=== PATIENT | female | born 1950 | race Caucasian/White ===

== ENCOUNTER 2018-02-20 20:54 | Emergency (ER) | payer MEDICARE, SELFPAY ==
[2018-02-20 20:55] VITALS: BP 175/70; PULSE 89; RESP 18; TEMP 36.6; O2SAT 94; BMI 37.4
--- NOTE | 2018-02-20 20:58 | ED.RN ---
CALLED FOR EKG PER RN REQUEST, PULLED OLD EKGS FOR
--- NOTE | 2018-02-20 21:05 | EKG12_ITS ---
Test Reason : WEAKNESS Blood Pressure : / mmHG Vent. Rate : 087 BPM Atrial Rate : 087 BPM P-R Int : 164 ms QRS Dur : 090 ms QT Int : 396 ms P-R-T Axes : 061 051 056 degrees QTc Int : 476 ms Normal sinus rhythm Normal ECG Confirmed by RANDI MONTIEL, IMELDA ([id number]), supervising editor news reel KEVIN ALONSO ([id number]) on 02/22/2018 11:21:23 AM Referred By: FAVIO Confirmed By:IMELDA BRYAN MD
--- NOTE | 2018-02-20 21:05 | CT_ITS ---
STUDY: CT BRAIN WITHOUT CONTRAST REASON FOR EXAM: Female, 67 years old. Dizziness and nausea and left-sided weakness RADIATION DOSAGE (If Supplied By Facility): CTDIvol = ( 44.99 ) mGy, DLP = ( 812.98 ) mGycm TECHNIQUE: Transaxial CT imaging of the brain was performed without administration of intravenous contrast material. Individualized dose optimization techniques were used for this CT. COMPARISON: Prior study of 10/07/2014 FINDINGS: There is a 1.1 cm subcutaneous nodule of the posterior scalp near the skull vertex. Normal calvarium. Normal size ventricles and extra-axial spaces for the patient's age. Normal white matter tracts of the cerebral hemispheres. Normal basal ganglia and thalami. Normal brainstem. Normal cerebellum. There is no intracranial hemorrhage. There are no findings of an acute ischemic infarction. There is a small polypoid filling defect of the left maxillary sinus. CT/Brain/Head without Contrast IMPRESSION: Small polypoid filling defect of the left maxillary sinus consistent with mucoid retention cyst. There is a 1.1 cm subcutaneous nodule of the posterior scalp near the skull vertex which may represent a sebaceous cyst. There is no evidence of intracranial hemorrhage or infarct. Electronically Signed: Cuauhtemoc Christine MD at 21:48 EST , Service support ,
[2018-02-20 21:16] LABS: Absolute Lymphocyte Count 3.28 X10^3/ul (0.83-4.51); Absolute Neutrophil Count 5.4 X10^3/uL (2.0-7.7); Basophil# 0.03 X10^3/uL; Basophil% 0.3 % (0-1); Eosinophil# 0.17 X10^3/uL; Eosinophils% 1.8 % (0-5); Hematocrit 40.7 % (37-47); Hemoglobin 13.6 g/dl (12.0-15.0); Lymphocyte # 3.28 X10^3/ul (4.0); Lymphocyte % 34.5 % (19-41); Mean Corp Hgb Conc 33.4 g/gl (32-36); Mean Corpuscular Hgb 30.4 pg (27.0-32.0); Mean Corpuscular Volume 90.8 fL (81-99); Mean Platelet Vol. 10.5 fl (6.2-12.0); Monocyte# 0.68 X10^3/uL; Monocyte% 7.1 % (0-10); Neutrophil # 5.35 X10^3/uL (2.7-7.7); Neutrophil % 56.2 % (47-70); Platelet Count 202 K/mm3 (150-450); RBC Distribution Width CV 12.5 % (11.6-14.6); RBC Distribution Width SD 41.4 fl (35.1-43.9); Red Blood Count 4.48 M/mm3 (4.2-5.4); White Blood Count 9.5 K/mm3 (4.4-11.0)
[2018-02-20 21:21] LABS: POSITIVE COUNT NO; POSITIVE DIFFERENTIAL NO; POSITIVE MORPHOLOGY NO
[2018-02-20] MEDS: LORazepam 2 MG/ML Syringe 0.5 MG IV (21:22)
[2018-02-20] MEDS: 0.9% Normal Saline 1,000 ML 150 ML IV (21:23)
--- NOTE | 2018-02-20 21:24 | ED.VISSUMM ---
- ER Visit Summary Date of Service: 02/20/18 Chief Complaint: Weak and dizzy History of Present Illness: The patient is a 67 F who had onset of vertigo with nausea and vomiting after blowing her nose about 3 hours prior to arrival. Patient does have chronic left sided weakness from prior stroke but she denies any weakness that is different than her baseline. She states she has had vertigo in the past but never this severe. Past history significant for prior stroke with chronic left sided weakness, diabetes, IA. Physical Examination: Blood pressure is 175/70, otherwise vitals normal. Patient is lying in bed no acute distress. Head and neck examination is unremarkable. Heart is regular rate and rhythm. Lung sounds are clear. Abdomen is soft nontender. Neuro exam reveals an NIH score of 3, but patient states this is at her baseline. Test Results: EKG is sinus 87 with no sign of acute ischemia. CBC and chemistry studies significant only for glucose of 251. Troponin is negative. CT head shows small filling defect in the left maxillary sinus consistent with a mucoid retention cyst. There is a 1.1 cm subcutaneous nodule the posterior scalp which may represent sebaceous cyst. There is no evidence of hemorrhage or infarct. Emergency Department Course and Treatment: Patient did receive Zofran IM with EMS. She is given Ativan IV along with IV fluids here. On repeat evaluation patient feels significantly improved. She will be given prescription for Zofran at home if needed. She will be discharged home with her . Treatment Plan: [] Disposition: Discharge Impression: Vertigo, improved This note was generated with [employer] dictation software. It may contain incorrect words, spelling, and punctuation that were not noted in review of the chart prior to signing ED Disposition - Plan for ED Patient: Chief Complaint: Weakness Referrals: Young Eric III, MD [Primary Care Provider] -
[2018-02-20 21:32] LABS: Anion Gap 6 (5-15); BUN 12 mg/dL (7-18); BUN/Creat Ratio 12.7 RATIO (10-20); Calcium,Total 8.4 mg/dL (8.5-10.1); Chloride 104 mmol/L (98-107); Creatinine, Serum 0.94 mg/dL (0.55-1.02); EST Glomerular Filtration Rate 63 mL/min (>60); Est Glom Filt Rate - Afr Amer 77 mL/min (>60); Estimated Creatinine Clearance 66.69 ml/min; Glucose 251 mg/dL (74-106); Sodium Level 139 mmol/L (136-145)
[2018-02-20 22:16] VITALS: BP 143/70; PULSE 83; RESP 12; O2SAT 94
--- NOTE | 2018-02-20 22:24 | ED.DEP ---
ED Disposition - Plan for ED Patient: Disposition: Home or Assisted Living Chief Complaint: Weakness Instructions: ED Vertigo Unspecified Prescriptions: Diazepam [Valium] 2 mg PO TID PRN PRN #10 tablet PRN Reason: Vertigo Referrals: Young Eric III, MD [Primary Care Provider] - 3-5 Days if not improving
[2018-02-20 22:43] VITALS: BP 143/78; PULSE 89; RESP 18; O2SAT 97
== END 2018-02-20 22:45 | disposition home or self-care (01) ==
PROVIDERS: Emergency Provider Emergency Medicine; Family Provider Family Medicine; PCP Family Medicine
DX: R42 Dizziness and giddiness (principal); I69.354 Hemiplegia and hemiparesis following cerebral infarction affecting left non-dominant side; I25.2 Old myocardial infarction; E11.9 Type 2 diabetes mellitus without complications; E66.9 Obesity, unspecified; Z68.37 Body mass index [BMI] 37.0-37.9, adult; Z79.4 Long term (current) use of insulin; Z79.82 Long term (current) use of aspirin; Z79.899 Other long term (current) drug therapy; Z72.0 Tobacco use
CPT/HCPCS: 70450; 80048; 84484; 85025; 93005; 96361; 96374; 99285; J7030; A4216; J2405

== ENCOUNTER 2018-05-15 20:52 | Observation (INO) | payer MEDICARE, SELFPAY ==
[2018-05-15 20:52] VITALS: BP 141/84; PULSE 90; RESP 19; TEMP 36.6; O2SAT 96; BMI 35.9
--- NOTE | 2018-05-15 20:55 | EKG12_ITS ---
Test Reason : CP Blood Pressure : / mmHG Vent. Rate : 088 BPM Atrial Rate : 088 BPM P-R Int : 148 ms QRS Dur : 084 ms QT Int : 392 ms P-R-T Axes : 045 051 055 degrees QTc Int : 474 ms Normal sinus rhythm Possible Inferior infarct , age undetermined Abnormal ECG Confirmed by RANDI MONTIEL, IMELDA ([id number]), material expeditor KEVIN ALONSO ([id number]) on 05/19/2018 8:15:21 AM Referred By: Solo Morfin Confirmed By:IMELDA BRYAN MD
[2018-05-15 20:56] VITALS: O2SAT 96
--- NOTE | 2018-05-15 21:17 | RAD_ITS ---
STUDY: X-RAY CHEST REASON FOR EXAM: Female, 67 years old. Chest pain. TECHNIQUE: Single AP portable view of the chest. COMPARISON: October 01, 2015. FINDINGS: The lungs are mildly hyperexpanded. There is no new mass or infiltrate. There is no demonstrated pleural abnormality. Normal size heart. Normal mediastinum and ana laura. Normal visualized pulmonary arteries. Normal visualized aortic arch and descending thoracic aorta. The thoracic spine is obscured by the mediastinum. There is degenerative osteoarthritis of the bilateral shoulders. There is no demonstrated abnormality of the visualized soft tissue structures of the upper abdomen. RAD/Chest 1 View (Portable) IMPRESSION: No acute cardiopulmonary disease or interval change. Electronically Signed: Arnoldo Mistry DO at 21:37 EST Tel [phone], Service support ,
[2018-05-15] MEDS: Ondansetron 4 MG/2 ML Vial IV (21:18)
[2018-05-15] MEDS: Morphine 4 MG/ML Syringe IV ×2 (21:18→23:39)
[2018-05-15] MEDS: 0.9% Normal Saline 1,000 ML 150 ML IV (21:18)
[2018-05-15 21:24] LABS: Absolute Neutrophil Count 5.2 X10^3/uL (2.0-7.7); Basophil# 0.05 X10^3/uL; Basophil% 0.5 % (0-1); Eosinophil# 0.17 X10^3/uL; Eosinophils% 1.8 % (0-5); Hematocrit 45.8 % (37-47); Hemoglobin 14.9 g/dl (12.0-15.0); Lymphocyte % 35.8 % (19-41); Mean Corp Hgb Conc 32.5 g/gl (32-36); Mean Corpuscular Hgb 29.2 pg (27.0-32.0); Mean Corpuscular Volume 89.8 fL (81-99); Mean Platelet Vol. 10.7 fl (6.2-12.0); Monocyte# 0.66 X10^3/uL; Monocyte% 6.9 % (0-10); Neutrophil % 54.8 % (47-70); POSITIVE COUNT NO; POSITIVE DIFFERENTIAL NO; POSITIVE MORPHOLOGY NO; Platelet Count 201 K/mm3 (150-450); RBC Distribution Width CV 12.8 % (11.6-14.6); RBC Distribution Width SD 42.2 fl (35.1-43.9); White Blood Count 9.5 K/mm3 (4.4-11.0)
[2018-05-15 21:40] LABS: Anion Gap 8 (5-15); BUN 10 mg/dL (7-18); BUN/Creat Ratio 10.1 RATIO (10-20); Calcium,Total 9.1 mg/dL (8.5-10.1); Chloride 102 mmol/L (98-107); EST Glomerular Filtration Rate 59 mL/min (>60); Est Glom Filt Rate - Afr Amer 72 mL/min (>60); Estimated Creatinine Clearance 62.69 ml/min; Glucose 378 mg/dL (74-106); Potassium 3.7 mmol/L (3.5-5.1); Sodium Level 136 mmol/L (136-145)
[2018-05-15 22:38] VITALS: BP 127/53; PULSE 74; RESP 14; O2SAT 95
--- NOTE | 2018-05-15 23:12 | PCM.HP.STD ---
Problem List (1) Chest pain Status: Acute (2) Diabetes Status: Chronic History of Present Illness Date of Admission: 05/15/18 Chief Complaint: chest pain The patient is a 67 year old F with a significant history of diabetes mellitus; CVA; and chronic left sided body pain status post CVA; CAD with 75% blockage in a coronary vessel diagnosed in [place] in 2005 who presented because of excruciating substernal chest pain. He described the pain as a pressure; and like a flower bursting from her chest. Associated with her symptoms is nausea without vomiting. She denies any diaphoresis. Her chest pain started while she was walking in her home. She denies any ameliorating factor. Her chest pain is aggravated with walking. Her chest pain started about 3 and half hours prior to presentation. In the past 1 month she has had difficulty walking from her bedroom to her kitchen. Past Medical History Past Medical History (Chronic Problems): Chronic Problems (Last Updated 05/16/18 @ 02:39 by Solo Morfin MD) Diabetes (Chronic) Medical History: Medical History (Last Updated 05/16/18 @ 02:39 by Solo Morfin MD) Diabetes E11.9 Allergies No Known Allergies Allergy (Verified 05/15/18 20:56) Home Medications: Ambulatory Orders Medication Instructions Recorded Gabapentin [Neurontin] 1,200 mg PO TID 06/06/14 Aspirin E.C. [Ecotrin] 81 mg PO DAILY 02/04/15 Atorvastatin Calcium [Lipitor] 40 mg PO QHS #30 tablet 10/31/16 Oxycodone HCl/Acetaminophen 1 - 2 tablet PO Q6H PRN PRN #20 10/31/16 [Percocet 5/325] tablet Baclofen [Lioresal] 5 mg PO TID PRN 02/20/18 Insulin Glargine [Lantus SoloStar 36 units SQ DAILY@1900 02/20/18 Pen] Amitriptyline HCl 25 mg PO QHS 05/16/18 Metoprolol Tartrate [Lopressor 50 mg PO BID 05/16/18 (beta lennie)] Surgical History: cataract Lives: Spouse/ Significant Other Smoking Status: Current every day smoker Tobacco Use: Cigarettes - *Family History Maternal History Items: - - Patient was adopted and does not know her biological parents. Paternal History Items: - - Patient was adopted and does not know her biological parents. Review of Systems Constitutional: Reports: Weakness. Denies: Chills, Fever, Weight Change HEENT: Denies: Head Aches, Sinus Congestion, Sinus Drainage Cardiovascular: Reports: Chest Pain. Denies: Palpitations Respiratory: Reports: Shortness of Breath. Denies: Cough Gastrointestinal: Reports: Nausea. Denies: Abdominal Pain, Vomiting Genitourinary: Denies: Dysuria Musculoskeletal: Denies: Joint Pain, Joint Tenderness Skin: Denies: Rash, Wounds Neurological: Denies: Numbness, Tingling, Focal weakness Psychiatric: Denies: Anxiety, Depression, Homicidal Ideations, Suicidal Ideations Hematologic/ Lymphatic: Denies: Easy Bruising, Easy Bleeding VTE Information - Inpt Only VTE Present on Admission: No VTE Mechan Device Prophylaxis: None VTE Pharm Prophylaxis ordered?: Yes Patient Problems: Active and Suspected Problems (Last Updated 05/16/18 @ 02:39 by Solo Morfin MD) Chest pain (Acute) - Physical Exam General: Alert, Oriented x3, Cooperative HEENT: Atraumatic, PERRLA, EOMI, Normocephalic Neck: Supple, No JVD, Negative Carotid Bruits Lungs: Clear to auscultation, Normal air movement Cardiovascular: Regular rate, No murmurs Abdomen: Bowel Sounds Present, Soft, Non Tender Extremities: No edema, Capillary Refill Less than 3 Seconds Skin: No rashes, No breakdown Musculoskeletal: No Tenderness to Palpation of Joints or Extremities Neurological: - - Left extremity strength 3/5 upper and lower. Right extremity strength 5 out of 5; upper and lower. Psych/Mental Status: Normal Affect, Appropriate Vital Signs Temp Pulse Resp BP Pulse Ox 98 F 74 14 127/53 H 95 05/15/18 20:52 05/15/18 22:38 05/15/18 22:38 05/15/18 22:38 05/15/18 22:38 Oxygen Delivery Method Room Air Weight: 116.9 kg Body Mass Index (BMI) 35.9 Finger Stick Blood Glucose 464 Laboratory Tests Past 24 Hrs 05/15/18 05/15/18 21:10 21:10 WBC 9.5 RBC 5.10 Hgb 14.9 Hct 45.8 MCV 89.8 MCH 29.2 MCHC 32.5 RDW 12.8 RDW Differential 42.2 Plt Count 201 MPV 10.7 Immature Gran % (Auto) 0.200 Neut % (Auto) 54.8 Lymph % (Auto) 35.8 Blanco % (Auto) 6.9 Eos % (Auto) 1.8 Baso % (Auto) 0.5 Absolute Neuts (auto) 5.2 Absolute Lymphs (auto) 3.40 Total Counted Not Reportable Sodium 136 Potassium 3.7 Chloride 102 Carbon Dioxide 26.0 Anion Gap 8 BUN 10 Creatinine 1.00 Estim Creat Clear Calc 62.69 Est GFR (MDRD) Af Amer 72 Est GFR (MDRD) Non-Af 59 L BUN/Creatinine Ratio 10.1 Glucose 378 H Calcium 9.1 Troponin I < 0.015 Assessment/Plan All Active Problems (Last Updated 05/16/18 @ 02:39 by Solo Morfin MD) Chest pain (Acute) The patient is a 67 year old F with a significant history of diabetes mellitus; CVA; and chronic left sided body pain status post CVA; CAD with 75% blockage in the coronary vessel diagnosed in [place] in 2005 who presented with excruciating substernal chest pain. Chest pain Admit to a monitored bed on PCU CXR independently reviewed confirms no acute cardiopulmonary process. EKG independently reviewed confirms q waves in inferior lobes ASA 81 mg p.o. daily SL NTG 0.4 mg prn as needed for chest pain We will check lipid panel. High intensity statin continued Serial cardiac enzymes Stat EKG as needed for chest pain Chemical Stress test in the AM if the cardiac enzymes are negative On metoprolol. She denies history of hypertension. Report that metoprolol was started because of CAD. Metoprolol continued Chronic pain Reported left-sided pain after stroke. On home gabapentin 1200 mg 3 times daily. Will cutdown her gabapentin dose to 300 mg 3 times daily at this time. Report that she has been taking her home Percocet more than required for which reason she has run out and is not due to get another Percocet until another week. Will order Percocet as needed while inpatient. Hypertension Though not officially diagnosed with hypertension, with patient on metoprolol and his systolic blood pressure more than 120 it is likely patient has underlying hypertension. Metoprolol continued Diabetes mellitus On presentation her blood glucose was not within goal. Continue Lantus Patient has been placed n.p.o. for stress test in a.m. Correction scale insulin ordered. DVT prophylaxis Subcutaneous heparin. Code Visit OBSV E&M: 87189 Initial observation care L3
--- NOTE | 2018-05-15 23:36 | ED.VISSUMM ---
- ER Visit Summary Date of Service: 05/15/18 Chief Complaint: Chest pain History of Present Illness: The patient is a [address] Young Eric III. She reports that she has chest pain began approximate 2 hours ago while she was walking around her house. Is a dull pressure with radiation up to her throat. Is 10 out of 10 at worst and 7-10 currently. Is worsened by exertion relieved by rest. States that it made her nauseated and short of breath. Patient has a history of diabetes, hypercholesterolemia, and tobacco use. She reports she had a heart catheterization in 2005 that showed 75% blockage and no intervention was undertaken. She has not had a stress test since then. Physical Examination: Vitals: Stable. Afebrile. General: Well-nourished and well-developed. Head: Normocephalic atraumatic. Neck: Supple, no lymphadenopathy. No JVD. Nontender. Cardiovascular: Regular rate and rhythm. No murmurs. Respiratory: No respiratory distress. Clear to auscultation bilaterally. Abdominal: Soft, nontender, nondistended, normal bowel sounds. No guarding, rebound, or peritoneal signs. Back: Nontender. Extremities: Nontender, no edema. Skin: Normal color, no rash. Neurologic: Alert and oriented ?3. Cranial nerves II through XII are intact. Normal strength and sensation. Psych: Normal affect. Test Results: EKG is sinus at [address] changes and artifact. Is unchanged from February of last year. Troponin is negative. Chem-7 is more for glucose of 378. CBC is normal. Chest x-ray is normal. Emergency Department Course and Treatment: Patient was treated with aspirin p.o. She was given morphine and Zofran IV. She is resting comfortably. Treatment Plan: Patient was discussed with Dr. Morfin. She will be admitted for further evaluation and treatment. Disposition: Admitted in improved condition. Impression: 1. Chest pain. 2. DINESH score of 4. 3. Hyperglycemia with history of non-insulin dependent diabetes mellitus. This note was generated with [employer] software. It may contain incorrect words, spelling, and punctuation that were not noted in review of the chart prior to signing ED Disposition - Plan for ED Patient: Referrals: Young Eric III, MD [Primary Care Provider] -
[2018-05-15 23:38] VITALS: BP 145/60; PULSE 78; RESP 15; O2SAT 96
[2018-05-16] VITALS (24 sets, daily range): BP systolic 90–165; BP diastolic 49–81; PULSE 73–94; RESP 16; TEMP 36.6–36.9; O2SAT 93–96; BMI 34.0; BMI 34.1
--- NOTE | 2018-05-16 02:20 | EKG12_ITS ---
Test Reason : Blood Pressure : / mmHG Vent. Rate : 087 BPM Atrial Rate : 087 BPM P-R Int : 138 ms QRS Dur : 082 ms QT Int : 376 ms P-R-T Axes : 031 040 074 degrees QTc Int : 452 ms Normal sinus rhythm Possible Inferior infarct , age undetermined T wave abnormality, consider anterior ischemia Abnormal ECG When compared with ECG of 16-MAY-2018 02:58, MANUAL COMPARISON REQUIRED, DATA IS UNCONFIRMED Confirmed by RANDI MONTIEL, IMELDA ([id number]), digital editor KEVIN ALONSO ([id number]) on 05/19/2018 9:23:41 AM Referred By: Solo Morfin Confirmed By:IMELDA BRYAN MD
[2018-05-16] MEDS: Insulin Lispro 100 UNIT/ML INSULN.PEN SQ ×5 (03:01→21:22)
[2018-05-16] MEDS: Gabapentin 300 MG Capsule PO ×3 (03:03→17:53)
[2018-05-16] MEDS: Amitriptyline 25 MG Tablet PO ×2 (03:33→21:22)
[2018-05-16] MEDS: Morphine 2 MG/ML Syringe IV ×3 (03:34→18:00)
[2018-05-16] MEDS: 0.9% NaCl Peripheral Flush Adult/Peds IV ×3 (03:34→18:03)
[2018-05-16 03:41] LABS: Bedside Glucose 273 mg/dL (70-110)
[2018-05-16 06:31] LABS: Hematocrit 46.4 % (37-47); Mean Corp Hgb Conc 32.3 g/gl (32-36); Mean Corpuscular Hgb 29.1 pg (27.0-32.0); Mean Corpuscular Volume 90.1 fL (81-99); Mean Platelet Vol. 10.8 fl (6.2-12.0); Platelet Count 210 K/mm3 (150-450); RBC Distribution Width SD 42.2 fl (35.1-43.9); Red Blood Count 5.15 M/mm3 (4.2-5.4); Scan Indicated on CBC? Y/N NO; White Blood Count 8.9 K/mm3 (4.4-11.0)
[2018-05-16 06:33] LABS: International Normalized Ratio 0.9; Prothrombin Time (Protime)PT. 12.5 SECONDS (11.7-14.9)
[2018-05-16 06:34] LABS: Partial Thromboplast Time 27.3 Seconds (24.1-36.2)
[2018-05-16] MEDS: Aspirin E.C. 81 MG Tablet PO (06:42)
[2018-05-16 06:50] LABS: Anion Gap 8 (5-15); BUN 11 mg/dL (7-18); BUN/Creat Ratio 12.7 RATIO (10-20); Chloride 105 mmol/L (98-107); Creatinine, Serum 0.86 mg/dL (0.55-1.02); EST Glomerular Filtration Rate 70 mL/min (>60); Est Glom Filt Rate - Afr Amer 85 mL/min (>60); Estimated Creatinine Clearance 75.26 ml/min; Glucose 191 mg/dL (74-106); Potassium 3.9 mmol/L (3.5-5.1); Sodium Level 140 mmol/L (136-145)
[2018-05-16 06:56] LABS: Bedside Glucose 208 mg/dL (70-110)
--- NOTE | 2018-05-16 08:01 | EKG12_ITS ---
Test Reason : CP Blood Pressure : / mmHG Vent. Rate : 082 BPM Atrial Rate : 082 BPM P-R Int : 148 ms QRS Dur : 090 ms QT Int : 396 ms P-R-T Axes : 046 041 058 degrees QTc Int : 462 ms Normal sinus rhythm Possible Inferior infarct , age undetermined Abnormal ECG When compared with ECG of 16-MAY-2018 08:15, MANUAL COMPARISON REQUIRED, DATA IS UNCONFIRMED Confirmed by RANDI MONTIEL, IMELDA ([id number]), medical transcription editor KEVIN ALONSO ([id number]) on 05/19/2018 9:22:15 AM Referred By: Solo Morfin Confirmed By:IMELDA BRYAN MD
[2018-05-16 08:22] LABS: Cholesterol 200 mg/dL (200); High Density Lipoprotein 39 mg/dL; Triglycerides 282 mg/dL; Very Low Density Lipoprotein 56 mg/dL (5-40)
[2018-05-16] MEDS: Metoprolol Tartrate 50 MG Tablet PO ×2 (10:54→21:22)
--- NOTE | 2018-05-16 11:47 | DCINST_ITS ---
- Discharge Diagnoses Current Active Problems: Current Active and Chronic Problems (Last Updated 05/16/18 @ 02:39 by Solo Morfin MD) Chest pain (Acute) Diabetes (Chronic) You will use the following diet at home:: Calorie/Carbohydrate Controlled (specify 1200, 1400, etc) - 1800 jami / day, Cardiac Your food should be the consistency of: Regular Your liquids should be the consistency of: Regular/Thin Discharge Activity: Return to Normal Activity, - - No smoking. Instructions: Tips for Quitting Smoking (Cardiovascular) Allergies/Adverse Reactions: Allergies No Known Allergies Allergy (Verified 05/15/18 20:56) Medications to take at Discharge Gabapentin [Neurontin] 1,200 mg PO TID 06/06/14 Aspirin E.C. [Ecotrin] 81 mg PO DAILY 02/04/15 Atorvastatin Calcium [Lipitor] 40 mg PO QHS #30 tablet 10/31/16 Oxycodone HCl/Acetaminophen [Percocet 5-325] 1 - 2 tablet PO Q6H PRN PRN #20 tablet 10/31/16 Baclofen [Lioresal] 5 mg PO TID PRN 02/20/18 Amitriptyline HCl 25 mg PO QHS 05/16/18 Aspirin E.C. [Ecotrin] 81 mg PO DAILY@0800 tablet 05/16/18 Insulin Glargine [Lantus SoloStar Pen] 38 units SC DAILY@1900 pen 05/16/18 Metoprolol Tartrate [Lopressor (beta lennie)] 50 mg PO BID 05/16/18 Primary Care Physician: Young Eric III, MD [Primary Care Provider] - Please follow up with your Primary Care Physician in: 1-2 weeks Test Results: Test results from this visit will be discussed in further detail at your follow- up appointment, if applicable. Proposed Discharge Date: 05/16/18
[2018-05-16 12:41] LABS: Bedside Glucose 187 mg/dL (70-110)
--- NOTE | 2018-05-16 12:57 | STRESSREP ---
Stress Test Report Pharmacologic myocardial perfusion stress test. 67-year-old lady with a history of chest pain. Stress protocol: Resting EKG demonstrates normal sinus rhythm with a rate of 93 bpm normal intervals are noted resting blood pressure 118/56. 0.4 mg of regadenoson was infused per usual protocol followed by rapid intravenous saline flush injection continuous EKG monitoring was performed. The patient maintained sinus rhythm with a maximum heart rate of 114 bpm attaining 73% maximum predicted heart rate the maximum workload was 1 metabolic equivalent. At rest there were no ST or T wave changes noted suggest abnormal flow reserve at peak infusion no ST or T wave changes were noted suggest abnormal flow reserve. Next Myocardial perfusion protocol. 14.1 mCi of technetium 99m sestamibi was injected at rest. 0.4 mg of regadenoson was infused per usual protocol. At peak infusion 44.2 mCi of technetium 99m sestamibi was injected stress images were obtained stress and rest images were reconstructed and compared in the short axis vertical long horizontal long axis. Gated images was obtained Perfusion SPECT analysis: Review of the stress images demonstrate normal uptake of tracer noted in all areas of myocardium. The rest images will demonstrate normal uptake tracer noted in all his myocardium. No reversibility is noted suggest ischemia no previous infarct is noted. Gated SPECT analysis: The gated ejection fraction is noted to be 72%. Conclusion: Normal pharmacologic myocardial perfusion stress test. Preserved ejection fraction.
--- NOTE | 2018-05-16 13:25 | CASEMGMT ---
According to the [facility] website, the following are in-network tertiary facilities: [facility], [facility], [facility], [facility], [facility], [facility], [employer], and . Pawan [facility]ILL[facility]
[2018-05-16 13:35] LABS: D-Dimer Quantitative (DVT/PE) 0.38 FEU/ug/m (0.27-0.49)
--- NOTE | 2018-05-16 14:17 | PCM.PROGNOTE ---
<Pro Heller - Last Filed: 05/16/18 14:17> Patient Problems: Active and Suspected Problems (Last Updated 05/16/18 @ 02:39 by Solo Morfin MD) Chest pain (Acute) Subjective: Pt is upset because she feels she is being treated as a drug seeker. She states that despite testing she continues to have 10/10 exploding chest pain radiating to the back and neck. Nitro and morphine only helped a little bit. The pain is ongoing. now present and able to help clarify hx. She had an [place] in 2005 or 2006 (she is not sure) in [place] ([facility]) and had 70% blockage in one vessel and >90% blockage in another. She does not know which vessels. She states she was given clot buster and has not had stents or open heart. She did not have follow up with cardiology. 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 The chest pain takes her breath away and makes her nauseous. She denies lightheadedness. Hernesto is her PCP. - Physical Exam General: Alert, Oriented x3, Cooperative HEENT: Atraumatic, PERRLA, EOMI, Normocephalic Neck: Supple, No JVD, Negative Carotid Bruits Lungs: Clear to auscultation, Normal air movement Cardiovascular: Regular rate, No murmurs Abdomen: Bowel Sounds Present, Soft, Non Tender, Obese Extremities: No edema, Capillary Refill Less than 3 Seconds Skin: No rashes, No breakdown Musculoskeletal: No Tenderness to Palpation of Joints or Extremities Neurological: Cranial nerves II-XII grossly intact Psych/Mental Status: Normal Affect, Appropriate, Alert and oriented to time, place, person, mood and affect Vital Signs Temp Pulse Resp BP Pulse Ox 98.0 F 92 16 127/52 H 94 05/16/18 07:52 05/16/18 10:59 05/16/18 07:52 05/16/18 10:54 05/16/18 07:52 Oxygen Delivery Method Room Air Weight: 251 lb 5.231 oz Body Mass Index (BMI) 34.0 Finger Stick Blood Glucose 464 Laboratory Tests Past 24 Hrs 05/15/18 05/15/18 05/16/18 21:10 21:10 01:25 WBC 9.5 RBC 5.10 Hgb 14.9 Hct 45.8 MCV 89.8 MCH 29.2 MCHC 32.5 RDW 12.8 RDW Differential 42.2 Plt Count 201 MPV 10.7 Immature Gran % (Auto) 0.200 Neut % (Auto) 54.8 Lymph % (Auto) 35.8 [place] % (Auto) 6.9 Eos % (Auto) 1.8 Baso % (Auto) 0.5 Absolute Neuts (auto) 5.2 Absolute Lymphs (auto) 3.40 Total Counted Not Reportable PT INR APTT D-Dimer Quant (PE/DVT) Sodium 136 Potassium 3.7 Chloride 102 Carbon Dioxide 26.0 Anion Gap 8 BUN 10 Creatinine 1.00 Estim Creat Clear Calc 62.69 Est GFR (MDRD) Af Amer 72 Est GFR (MDRD) Non-Af 59 L BUN/Creatinine Ratio 10.1 Glucose 378 H Calcium 9.1 Troponin I < 0.015 < 0.015 Triglycerides Cholesterol LDL Cholesterol VLDL Cholesterol HDL Cholesterol 05/16/18 05/16/18 05/16/18 03:50 06:05 06:05 WBC 8.9 RBC 5.15 Hgb 15.0 Hct 46.4 MCV 90.1 MCH 29.1 MCHC 32.3 RDW 13.0 RDW Differential 42.2 Plt Count 210 MPV 10.8 Immature Gran % (Auto) Neut % (Auto) Lymph % (Auto) [place] % (Auto) Eos % (Auto) Baso % (Auto) Absolute Neuts (auto) Absolute Lymphs (auto) Total Counted PT 12.5 INR 0.9 APTT 27.3 D-Dimer Quant (PE/DVT) Sodium Potassium Chloride Carbon Dioxide Anion Gap BUN Creatinine Estim Creat Clear Calc Est GFR (MDRD) Af Amer Est GFR (MDRD) Non-Af BUN/Creatinine Ratio Glucose Calcium Troponin I < 0.015 Triglycerides Cholesterol LDL Cholesterol VLDL Cholesterol HDL Cholesterol 05/16/18 05/16/18 05/16/18 06:05 07:17 13:05 WBC RBC Hgb Hct MCV MCH MCHC RDW RDW Differential Plt Count MPV Immature Gran % (Auto) Neut % (Auto) Lymph % (Auto) [place] % (Auto) Eos % (Auto) Baso % (Auto) Absolute Neuts (auto) Absolute Lymphs (auto) Total Counted PT INR APTT D-Dimer Quant (PE/DVT) 0.38 Sodium 140 Potassium 3.9 Chloride 105 Carbon Dioxide 27.0 Anion Gap 8 BUN 11 Creatinine 0.86 Estim Creat Clear Calc 75.26 Est GFR (MDRD) Af Amer 85 Est GFR (MDRD) Non-Af 70 BUN/Creatinine Ratio 12.7 Glucose 191 H Calcium 9.0 Troponin I < 0.015 Triglycerides 282 H Cholesterol 200 LDL Cholesterol 105 VLDL Cholesterol 56 H HDL Cholesterol 39 L POC Glucose 05/16/18 05/16/18 05/16/18 12:19 06:36 03:01 POC Glucose 187 H 208 H 273 H Medical Necessity - Tobacco Use Smoking Status: Current every day smoker Tobacco Use: Cigarettes Assessment/Plan All Active Problems (Last Updated 05/16/18 @ 02:39 by Solo Morfin MD) Chest pain (Acute) 1. Chest pain - trop neg, CXR neg, tele neg, d dimer neg, stress test neg. Ongoing severe CP. Consult to cardiology. 2. Hx CAD, prior AZ - 09/08. Treated with tpa. On asa/statin, beta lennie. 3. Hx CVA - left sided weakness since resolved, however chronic pain syndrome in left side. again, she is on asa/statin therapy. Continue home pain regimen. 4. MCC nicotine abuse - I discussed the importance of cessation given her CV disease hx. 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 She is using the nicotine patch. 5. DMt2 with obesity - poorly controlled. Titrate insulin to response. DVT ppx: lovenox DC planning: pt may have heart cath in AM, cardiology consult is pending. This patient was seen by Pro Heller PA-C under the supervision of Doctor Caio. <Sav Kearney - Last Filed: 05/16/18 14:57> - Physical Exam Vital Signs Temp Pulse Resp BP Pulse Ox 97.9 F 77 16 136/57 H 96 05/16/18 14:47 05/16/18 14:47 05/16/18 14:47 05/16/18 14:47 05/16/18 14:47 Oxygen Delivery Method Room Air Weight: 114 kg Body Mass Index (BMI) 34.0 Finger Stick Blood Glucose 464 Laboratory Tests Past 24 Hrs 05/15/18 05/15/18 05/16/18 21:10 21:10 01:25 WBC 9.5 RBC 5.10 Hgb 14.9 Hct 45.8 MCV 89.8 MCH 29.2 MCHC 32.5 RDW 12.8 RDW Differential 42.2 Plt Count 201 MPV 10.7 Immature Gran % (Auto) 0.200 Neut % (Auto) 54.8 Lymph % (Auto) 35.8 [place] % (Auto) 6.9 Eos % (Auto) 1.8 Baso % (Auto) 0.5 Absolute Neuts (auto) 5.2 Absolute Lymphs (auto) 3.40 Total Counted Not Reportable PT INR APTT D-Dimer Quant (PE/DVT) Sodium 136 Potassium 3.7 Chloride 102 Carbon Dioxide 26.0 Anion Gap 8 BUN 10 Creatinine 1.00 Estim Creat Clear Calc 62.69 Est GFR (MDRD) Af Amer 72 Est GFR (MDRD) Non-Af 59 L BUN/Creatinine Ratio 10.1 Glucose 378 H Calcium 9.1 Troponin I < 0.015 < 0.015 Triglycerides Cholesterol LDL Cholesterol VLDL Cholesterol HDL Cholesterol 05/16/18 05/16/18 05/16/18 03:50 06:05 06:05 WBC 8.9 RBC 5.15 Hgb 15.0 Hct 46.4 MCV 90.1 MCH 29.1 MCHC 32.3 RDW 13.0 RDW Differential 42.2 Plt Count 210 MPV 10.8 Immature Gran % (Auto) Neut % (Auto) Lymph % (Auto) [place] % (Auto) Eos % (Auto) Baso % (Auto) Absolute Neuts (auto) Absolute Lymphs (auto) Total Counted PT 12.5 INR 0.9 APTT 27.3 D-Dimer Quant (PE/DVT) Sodium Potassium Chloride Carbon Dioxide Anion Gap BUN Creatinine Estim Creat Clear Calc Est GFR (MDRD) Af Amer Est GFR (MDRD) Non-Af BUN/Creatinine Ratio Glucose Calcium Troponin I < 0.015 Triglycerides Cholesterol LDL Cholesterol VLDL Cholesterol HDL Cholesterol 05/16/18 05/16/18 05/16/18 06:05 07:17 13:05 WBC RBC Hgb Hct MCV MCH MCHC RDW RDW Differential Plt Count MPV Immature Gran % (Auto) Neut % (Auto) Lymph % (Auto) [place] % (Auto) Eos % (Auto) Baso % (Auto) Absolute Neuts (auto) Absolute Lymphs (auto) Total Counted PT INR APTT D-Dimer Quant (PE/DVT) 0.38 Sodium 140 Potassium 3.9 Chloride 105 Carbon Dioxide 27.0 Anion Gap 8 BUN 11 Creatinine 0.86 Estim Creat Clear Calc 75.26 Est GFR (MDRD) Af Amer 85 Est GFR (MDRD) Non-Af 70 BUN/Creatinine Ratio 12.7 Glucose 191 H Calcium 9.0 Troponin I < 0.015 Triglycerides 282 H Cholesterol 200 LDL Cholesterol 105 VLDL Cholesterol 56 H HDL Cholesterol 39 L POC Glucose 05/16/18 05/16/18 05/16/18 12:19 06:36 03:01 POC Glucose 187 H 208 H 273 H Assessment/Plan This patient was seen in conjunction with Pro Heller PA-C . I have independently interviewed and examined the patient and reviewed pertinent historical, laboratory, and other data. Please refer to Pro Heller PA-C note for details of this patient's presentation, findings, and recommendations. I have reviewed Pro Heller PA-C note and concur with documented findings. In brief, patient is a 67-year-old lady with past medical history significant for CAD per patient treated with thrombolysis presented with chest pain. Placed on a monitored bed [place] was ruled out with serial cardiac enzymes. Underwent a nuclear stress test which was negative for stress-induced ischemia. In view of persistent pain consult was placed to cardiology Physical Examination: GENERAL: cooperative HEENT: Atraumatic; moist oral mucosa EYES; Anicteric, Normal Conjunctiva NECK; supple, normal thyroid, no distended JVD. RESPIRATORY: Diminished to auscultation bilaterally, CARDIOVASCULAR: Regular S1 S2, no audible murmurs NEURO: Awake; no lateralizing signs. SKIN: No Rash PSYCH; Normal affect Assessment: 1. Chest pain 2. CAD with previous [place] no intervention 3. Diabetes mellitus type 2 4. Tobacco dependence 5. History of CVA with no residual effect 6. Obesity with BMI of 34.1 Recommendations: 1. I have discussed the results of my overview and impressions with the patient 2. Options for management were reviewed Code Visit OBSV E&M: [id number] Subsequent observation care L3
--- NOTE | 2018-05-16 14:22 | PN_ITS ---
<Pro Heller - Last Filed: 05/16/18 14:17> Patient Problems: Active and Suspected Problems (Last Updated 05/16/18 @ 02:39 by Solo Morfin MD) Chest pain (Acute) Subjective: Pt is upset because she feels she is being treated as a drug seeker. She states that despite testing she continues to have 10/10 exploding chest pain radiating to the back and neck. Nitro and morphine only helped a little bit. The pain is ongoing. now present and able to help clarify hx. She had an [place] in 2005 or 2006 (she is not sure) in [place] ([facility]) and had 70% blockage in one vessel and >90% blockage in another. She does not know which vessels. She states she was given clot buster and has not had stents or open heart. She did not have follow up with cardiology. 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 The chest pain takes her breath away and makes her nauseous. She denies lightheadedness. Hernesto is her PCP. - Physical Exam General: Alert, Oriented x3, Cooperative HEENT: Atraumatic, PERRLA, EOMI, Normocephalic Neck: Supple, No JVD, Negative Carotid Bruits Lungs: Clear to auscultation, Normal air movement Cardiovascular: Regular rate, No murmurs Abdomen: Bowel Sounds Present, Soft, Non Tender, Obese Extremities: No edema, Capillary Refill Less than 3 Seconds Skin: No rashes, No breakdown Musculoskeletal: No Tenderness to Palpation of Joints or Extremities Neurological: Cranial nerves II-XII grossly intact Psych/Mental Status: Normal Affect, Appropriate, Alert and oriented to time, place, person, mood and affect Vital Signs Temp Pulse Resp BP Pulse Ox 98.0 F 92 16 127/52 H 94 05/16/18 07:52 05/16/18 10:59 05/16/18 07:52 05/16/18 10:54 05/16/18 07:52 Oxygen Delivery Method Room Air Weight: 251 lb 5.231 oz Body Mass Index (BMI) 34.0 Finger Stick Blood Glucose 464 Laboratory Tests Past 24 Hrs 05/15/18 05/15/18 05/16/18 21:10 21:10 01:25 WBC 9.5 RBC 5.10 Hgb 14.9 Hct 45.8 MCV 89.8 MCH 29.2 MCHC 32.5 RDW 12.8 RDW Differential 42.2 Plt Count 201 MPV 10.7 Immature Gran % (Auto) 0.200 Neut % (Auto) 54.8 Lymph % (Auto) 35.8 [place] % (Auto) 6.9 Eos % (Auto) 1.8 Baso % (Auto) 0.5 Absolute Neuts (auto) 5.2 Absolute Lymphs (auto) 3.40 Total Counted Not Reportable PT INR APTT D-Dimer Quant (PE/DVT) Sodium 136 Potassium 3.7 Chloride 102 Carbon Dioxide 26.0 Anion Gap 8 BUN 10 Creatinine 1.00 Estim Creat Clear Calc 62.69 Est GFR (MDRD) Af Amer 72 Est GFR (MDRD) Non-Af 59 L BUN/Creatinine Ratio 10.1 Glucose 378 H Calcium 9.1 Troponin I < 0.015 < 0.015 Triglycerides Cholesterol LDL Cholesterol VLDL Cholesterol HDL Cholesterol 05/16/18 05/16/18 05/16/18 03:50 06:05 06:05 WBC 8.9 RBC 5.15 Hgb 15.0 Hct 46.4 MCV 90.1 MCH 29.1 MCHC 32.3 RDW 13.0 RDW Differential 42.2 Plt Count 210 MPV 10.8 Immature Gran % (Auto) Neut % (Auto) Lymph % (Auto) [place] % (Auto) Eos % (Auto) Baso % (Auto) Absolute Neuts (auto) Absolute Lymphs (auto) Total Counted PT 12.5 INR 0.9 APTT 27.3 D-Dimer Quant (PE/DVT) Sodium Potassium Chloride Carbon Dioxide Anion Gap BUN Creatinine Estim Creat Clear Calc Est GFR (MDRD) Af Amer Est GFR (MDRD) Non-Af BUN/Creatinine Ratio Glucose Calcium Troponin I < 0.015 Triglycerides Cholesterol LDL Cholesterol VLDL Cholesterol HDL Cholesterol 05/16/18 05/16/18 05/16/18 06:05 07:17 13:05 WBC RBC Hgb Hct MCV MCH MCHC RDW RDW Differential Plt Count MPV Immature Gran % (Auto) Neut % (Auto) Lymph % (Auto) [place] % (Auto) Eos % (Auto) Baso % (Auto) Absolute Neuts (auto) Absolute Lymphs (auto) Total Counted PT INR APTT D-Dimer Quant (PE/DVT) 0.38 Sodium 140 Potassium 3.9 Chloride 105 Carbon Dioxide 27.0 Anion Gap 8 BUN 11 Creatinine 0.86 Estim Creat Clear Calc 75.26 Est GFR (MDRD) Af Amer 85 Est GFR (MDRD) Non-Af 70 BUN/Creatinine Ratio 12.7 Glucose 191 H Calcium 9.0 Troponin I < 0.015 Triglycerides 282 H Cholesterol 200 LDL Cholesterol 105 VLDL Cholesterol 56 H HDL Cholesterol 39 L POC Glucose 05/16/18 05/16/18 05/16/18 12:19 06:36 03:01 POC Glucose 187 H 208 H 273 H Medical Necessity - Tobacco Use Smoking Status: Current every day smoker Tobacco Use: Cigarettes Assessment/Plan All Active Problems (Last Updated 05/16/18 @ 02:39 by Solo Morfin MD) Chest pain (Acute) 1. Chest pain - trop neg, CXR neg, tele neg, d dimer neg, stress test neg. Ongoing severe CP. Consult to cardiology. 2. Hx CAD, prior [place] - 09/08. Treated with tpa. On asa/statin, beta lennie. 3. Hx CVA - left sided weakness since resolved, however chronic pain syndrome in left side. again, she is on asa/statin therapy. Continue home pain regimen. 4. custodial nicotine abuse - I discussed the importance of cessation given her CV disease hx. 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 She is using the nicotine patch. 5. DMt2 with obesity - poorly controlled. Titrate insulin to response. DVT ppx: lovenox DC planning: pt may have heart cath in AM, cardiology consult is pending. This patient was seen by Pro Heller PA-C under the supervision of Doctor Caio. <Sav Kearney - Last Filed: 05/16/18 14:57> - Physical Exam Vital Signs Temp Pulse Resp BP Pulse Ox 97.9 F 77 16 136/57 H 96 05/16/18 14:47 05/16/18 14:47 05/16/18 14:47 05/16/18 14:47 05/16/18 14:47 Oxygen Delivery Method Room Air Weight: 114 kg Body Mass Index (BMI) 34.0 Finger Stick Blood Glucose 464 Laboratory Tests Past 24 Hrs 05/15/18 05/15/18 05/16/18 21:10 21:10 01:25 WBC 9.5 RBC 5.10 Hgb 14.9 Hct 45.8 MCV 89.8 MCH 29.2 MCHC 32.5 RDW 12.8 RDW Differential 42.2 Plt Count 201 MPV 10.7 Immature Gran % (Auto) 0.200 Neut % (Auto) 54.8 Lymph % (Auto) 35.8 [place] % (Auto) 6.9 Eos % (Auto) 1.8 Baso % (Auto) 0.5 Absolute Neuts (auto) 5.2 Absolute Lymphs (auto) 3.40 Total Counted Not Reportable PT INR APTT D-Dimer Quant (PE/DVT) Sodium 136 Potassium 3.7 Chloride 102 Carbon Dioxide 26.0 Anion Gap 8 BUN 10 Creatinine 1.00 Estim Creat Clear Calc 62.69 Est GFR (MDRD) Af Amer 72 Est GFR (MDRD) Non-Af 59 L BUN/Creatinine Ratio 10.1 Glucose 378 H Calcium 9.1 Troponin I < 0.015 < 0.015 Triglycerides Cholesterol LDL Cholesterol VLDL Cholesterol HDL Cholesterol 05/16/18 05/16/18 05/16/18 03:50 06:05 06:05 WBC 8.9 RBC 5.15 Hgb 15.0 Hct 46.4 MCV 90.1 MCH 29.1 MCHC 32.3 RDW 13.0 RDW Differential 42.2 Plt Count 210 MPV 10.8 Immature Gran % (Auto) Neut % (Auto) Lymph % (Auto) [place] % (Auto) Eos % (Auto) Baso % (Auto) Absolute Neuts (auto) Absolute Lymphs (auto) Total Counted PT 12.5 INR 0.9 APTT 27.3 D-Dimer Quant (PE/DVT) Sodium Potassium Chloride Carbon Dioxide Anion Gap BUN Creatinine Estim Creat Clear Calc Est GFR (MDRD) Af Amer Est GFR (MDRD) Non-Af BUN/Creatinine Ratio Glucose Calcium Troponin I < 0.015 Triglycerides Cholesterol LDL Cholesterol VLDL Cholesterol HDL Cholesterol 05/16/18 05/16/18 05/16/18 06:05 07:17 13:05 WBC RBC Hgb Hct MCV MCH MCHC RDW RDW Differential Plt Count MPV Immature Gran % (Auto) Neut % (Auto) Lymph % (Auto) [place] % (Auto) Eos % (Auto) Baso % (Auto) Absolute Neuts (auto) Absolute Lymphs (auto) Total Counted PT INR APTT D-Dimer Quant (PE/DVT) 0.38 Sodium 140 Potassium 3.9 Chloride 105 Carbon Dioxide 27.0 Anion Gap 8 BUN 11 Creatinine 0.86 Estim Creat Clear Calc 75.26 Est GFR (MDRD) Af Amer 85 Est GFR (MDRD) Non-Af 70 BUN/Creatinine Ratio 12.7 Glucose 191 H Calcium 9.0 Troponin I < 0.015 Triglycerides 282 H Cholesterol 200 LDL Cholesterol 105 VLDL Cholesterol 56 H HDL Cholesterol 39 L POC Glucose 05/16/18 05/16/18 05/16/18 12:19 06:36 03:01 POC Glucose 187 H 208 H 273 H Assessment/Plan This patient was seen in conjunction with Pro Heller PA-C . I have independently interviewed and examined the patient and reviewed pertinent historical, laboratory, and other data. Please refer to Pro Heller PA-C note for details of this patient's presentation, findings, and recommendations. I have reviewed Pro Heller PA-C note and concur with documented findings. In brief, patient is a 67-year-old lady with past medical history significant for CAD per patient treated with thrombolysis presented with chest pain. Placed on a monitored bed [place] was ruled out with serial cardiac enzymes. Underwent a nuclear stress test which was negative for stress-induced ischemia. In view of persistent pain consult was placed to cardiology Physical Examination: GENERAL: cooperative HEENT: Atraumatic; moist oral mucosa EYES; Anicteric, Normal Conjunctiva NECK; supple, normal thyroid, no distended JVD. RESPIRATORY: Diminished to auscultation bilaterally, CARDIOVASCULAR: Regular S1 S2, no audible murmurs NEURO: Awake; no lateralizing signs. SKIN: No Rash PSYCH; Normal affect Assessment: 1. Chest pain 2. CAD with previous [place] no intervention 3. Diabetes mellitus type 2 4. Tobacco dependence 5. History of CVA with no residual effect 6. Obesity with BMI of 34.1 Recommendations: 1. I have discussed the results of my overview and impressions with the patient 2. Options for management were reviewed Code Visit OBSV E&M: [id number] Subsequent observation care L3
--- NOTE | 2018-05-16 16:51 | PCM.CONS.C ---
Reason for Consult Date of Consultation: 05/16/18 Reason for Consultation: Chest pain History of Present Illness: The patient is a 67 year old F with a significant history of diabetes mellitus; CVA; and chronic left sided body pain status post CVA; CAD with 75% blockage in a coronary vessel diagnosed in [place] in 2005 who presented because of excruciating substernal chest pain. He described the pain as a pressure; there is however no radiation with the discomfort. She has had this discomfort since she was in the hospital. Her EKG did not demonstrate any significant abnormality and she was scheduled for a stress test. The stress test demonstrated no evidence of ischemia however the patient has continued to complain of chest pain and is suggesting that she wants this further evaluated before she is discharged. She has had some nausea with her discomfort but denies any diaphoresis she is not had any claudication. She has had no dizziness near syncope or syncope.. Past Medical History Allergies/Adverse Reactions: Allergies No Known Allergies Allergy (Verified 05/15/18 20:56) Home Medications: Ambulatory Orders Medication Instructions Recorded Gabapentin [Neurontin] 1,200 mg PO TID 06/06/14 Aspirin E.C. [Ecotrin] 81 mg PO DAILY 02/04/15 Atorvastatin Calcium [Lipitor] 40 mg PO QHS #30 tablet 10/31/16 Oxycodone HCl/Acetaminophen 1 - 2 tablet PO Q6H PRN PRN #20 10/31/16 [Percocet 5-325] tablet Baclofen [Lioresal] 5 mg PO TID PRN 02/20/18 Amitriptyline HCl 25 mg PO QHS 05/16/18 Aspirin E.C. [Ecotrin] 81 mg PO DAILY@0800 tablet 05/16/18 Insulin Glargine [Lantus SoloStar 38 units SC DAILY@1900 pen 05/16/18 Pen] Metoprolol Tartrate [Lopressor 50 mg PO BID 05/16/18 (beta lennie)] Past Medical History (Chronic Problems): Chronic Problems (Last Updated 05/16/18 @ 02:39 by Solo Morfin MD) Diabetes (Chronic) Surgical History: cataract - *Family History Maternal History Items: - - Patient was adopted and does not know her biological parents. Paternal History Items: - - Patient was adopted and does not know her biological parents. Lives: Spouse/ Significant Other Smoking Status: Current every day smoker Tobacco Use: Cigarettes Alcohol: None Drugs: None Review of Systems - Review of Systems General: Denies: Fever, Night Sweats, Fatigue HEENT: Denies: Vision Change Cardiovascular: Reports: Chest Discomfort. Denies: Shortness of Breath, Orthopnea, PND, Peripheral Edema, Palpitations, Lightheadedness, Dizziness, Near Syncope, Syncope Respiratory: Denies: Cough, Sputum Production, Hemoptysis Gastrointestinal: Denies: Indigestion, Hematemesis, Hematochezia, Melena Genitourinary: Denies: Dysuria, Hematuria Muscoloskeletal: Denies: Myalgias Skin: Denies: Rash Neurological: Denies: Dizziness Psychiatric: Reports: Anxiety Endocrine: Denies: Unexplained Weight Loss Hematologic/ Lymphatic: Denies: Anemia Subjectve: Pleasant lady in no apparent distress Objective: Vital Signs Temp Pulse Resp BP Pulse Ox 97.9 F 77 16 136/57 H 96 05/16/18 14:47 05/16/18 14:59 05/16/18 14:47 05/16/18 14:47 05/16/18 14:47 Oxygen Delivery Method Room Air Weight: 251 lb 5.231 oz Body Mass Index (BMI) 34.0 Finger Stick Blood Glucose 464 General: Awake, Alert, Oriented x 3 HEENT: PERRL, EOMI, Sclera Non Icteric Neck: Supple, Good ROM, No Lymph Node Enlargement Lungs: Clear to auscultation Cardiovascular: Regular Rhythm, Normal S1, Normal S2, No Murmurs, No Rubs, No Gallops Vascular: No Carotid Bruits, Normal Femoral Pulses, Normal Radial Pulses, Normal Dorsalis Pedal Pulse, Normal Posterior Tibial Pulses Abdomen: Bowel Sounds Present, Soft, Non Tender, No HSM, No Organomegaly Extremities: No Cyanosis, No Clubbing, No edema Musculoskeletal: No Erythema Skin: No Rashes Lymphatic: No Lymph Node Enlargement Neurological: No Focal Motor or Sensory Deficit Psych/Mental Status: Appropriate 05/15/18 21:10: WBC 9.5, RBC 5.10, Hgb 14.9, Hct 45.8, MCV 89.8, MCH 29.2, MCHC 32.5, RDW 12.8, RDW Differential 42.2, Plt Count 201, MPV 10.7, Immature Gran % (Auto) 0.200, Neut % (Auto) 54.8, Lymph % (Auto) 35.8, [place] % (Auto) 6.9, Eos % (Auto) 1.8, Baso % (Auto) 0.5, Absolute Neuts (auto) 5.2, Total Counted Not Reportable 05/15/18 21:10: Sodium 136, Potassium 3.7, Chloride 102, Carbon Dioxide 26.0, Anion Gap 8, BUN 10, Creatinine 1.00, Est GFR (MDRD) Af Amer 72, Est GFR (MDRD) Non-Af 59 L, BUN/Creatinine Ratio 10.1, Glucose 378 H, Calcium 9.1, Troponin I < 0.015 05/16/18 01:25: Troponin I < 0.015 05/16/18 03:50: Troponin I < 0.015 05/16/18 06:05: WBC 8.9, RBC 5.15, Hgb 15.0, Hct 46.4, MCV 90.1, MCH 29.1, MCHC 32.3, RDW 13.0, RDW Differential 42.2, Plt Count 210, MPV 10.8 05/16/18 06:05: PT 12.5, INR 0.9, APTT 27.3 05/16/18 06:05: Sodium 140, Potassium 3.9, Chloride 105, Carbon Dioxide 27.0, Anion Gap 8, BUN 11, Creatinine 0.86, Est GFR (MDRD) Af Amer 85, Est GFR (MDRD) Non-Af 70, BUN/Creatinine Ratio 12.7, Glucose 191 H, Calcium 9.0 05/16/18 07:17: Troponin I < 0.015, Triglycerides 282 H, Cholesterol 200, LDL Cholesterol 105, VLDL Cholesterol 56 H, HDL Cholesterol 39 L 05/16/18 13:05: D-Dimer Quant (PE/DVT) 0.38 Rhythm: EKG: Normal sinus rhythm with no acute changes ECHO: Stress Test: Normal myocardial perfusion stress test Assessment/Plan 1. Chest pain Patient presents with chest discomfort which is somewhat atypical. She however is complaints that she was told that she had some coronary artery disease I did suggest to her that her stress test was reassuring. She however would want us to investigate the above and my recommendation is for us to perform a left heart catheterization. The risks benefits and alternatives have been explained to her she understands and agrees to proceed. We will perform the above in a.m. and depending on the findings further recommendations will be made. 2. Hyperlipidemia Patient has borderline lipids and we will plan on aggressive risk factor modification. Thank you for allowing me to participate in the care of your patient. Please don't hesitate to call if any issues arise
--- NOTE | 2018-05-16 16:57 | CON.PCM_ITS ---
Reason for Consult Date of Consultation: 05/16/18 Reason for Consultation: Chest pain History of Present Illness: The patient is a 67 year old F with a significant history of diabetes mellitus; CVA; and chronic left sided body pain status post CVA; CAD with 75% blockage in a coronary vessel diagnosed in [place] in 2005 who presented because of excruciating substernal chest pain. He described the pain as a pressure; there is however no radiation with the discomfort. She has had this discomfort since she was in the hospital. Her EKG did not demonstrate any significant abnormality and she was scheduled for a stress test. The stress test demonstrated no evidence of ischemia however the patient has continued to complain of chest pain and is suggesting that she wants this further evaluated before she is discharged. She has had some nausea with her discomfort but denies any diaphoresis she is not had any claudication. She has had no dizziness near syncope or syncope.. Past Medical History Allergies/Adverse Reactions: Allergies No Known Allergies Allergy (Verified 05/15/18 20:56) Home Medications: Ambulatory Orders Medication Instructions Recorded Gabapentin [Neurontin] 1,200 mg PO TID 06/06/14 Aspirin E.C. [Ecotrin] 81 mg PO DAILY 02/04/15 Atorvastatin Calcium [Lipitor] 40 mg PO QHS #30 tablet 10/31/16 Oxycodone HCl/Acetaminophen 1 - 2 tablet PO Q6H PRN PRN #20 10/31/16 [Percocet 5-325] tablet Baclofen [Lioresal] 5 mg PO TID PRN 02/20/18 Amitriptyline HCl 25 mg PO QHS 05/16/18 Aspirin E.C. [Ecotrin] 81 mg PO DAILY@0800 tablet 05/16/18 Insulin Glargine [Lantus SoloStar 38 units SC DAILY@1900 pen 05/16/18 Pen] Metoprolol Tartrate [Lopressor 50 mg PO BID 05/16/18 (beta lennie)] Past Medical History (Chronic Problems): Chronic Problems (Last Updated 05/16/18 @ 02:39 by Solo Morfin MD) Diabetes (Chronic) Surgical History: cataract - *Family History Maternal History Items: - - Patient was adopted and does not know her biological parents. Paternal History Items: - - Patient was adopted and does not know her biological parents. Lives: Spouse/ Significant Other Smoking Status: Current every day smoker Tobacco Use: Cigarettes Alcohol: None Drugs: None Review of Systems - Review of Systems General: Denies: Fever, Night Sweats, Fatigue HEENT: Denies: Vision Change Cardiovascular: Reports: Chest Discomfort. Denies: Shortness of Breath, Orthopnea, PND, Peripheral Edema, Palpitations, Lightheadedness, Dizziness, Near Syncope, Syncope Respiratory: Denies: Cough, Sputum Production, Hemoptysis Gastrointestinal: Denies: Indigestion, Hematemesis, Hematochezia, Melena Genitourinary: Denies: Dysuria, Hematuria Muscoloskeletal: Denies: Myalgias Skin: Denies: Rash Neurological: Denies: Dizziness Psychiatric: Reports: Anxiety Endocrine: Denies: Unexplained Weight Loss Hematologic/ Lymphatic: Denies: Anemia Subjectve: Pleasant lady in no apparent distress Objective: Vital Signs Temp Pulse Resp BP Pulse Ox 97.9 F 77 16 136/57 H 96 05/16/18 14:47 05/16/18 14:59 05/16/18 14:47 05/16/18 14:47 05/16/18 14:47 Oxygen Delivery Method Room Air Weight: 251 lb 5.231 oz Body Mass Index (BMI) 34.0 Finger Stick Blood Glucose 464 General: Awake, Alert, Oriented x 3 HEENT: PERRL, EOMI, Sclera Non Icteric Neck: Supple, Good ROM, No Lymph Node Enlargement Lungs: Clear to auscultation Cardiovascular: Regular Rhythm, Normal S1, Normal S2, No Murmurs, No Rubs, No Gallops Vascular: No Carotid Bruits, Normal Femoral Pulses, Normal Radial Pulses, Normal Dorsalis Pedal Pulse, Normal Posterior Tibial Pulses Abdomen: Bowel Sounds Present, Soft, Non Tender, No HSM, No Organomegaly Extremities: No Cyanosis, No Clubbing, No edema Musculoskeletal: No Erythema Skin: No Rashes Lymphatic: No Lymph Node Enlargement Neurological: No Focal Motor or Sensory Deficit Psych/Mental Status: Appropriate 05/15/18 21:10: WBC 9.5, RBC 5.10, Hgb 14.9, Hct 45.8, MCV 89.8, MCH 29.2, MCHC 32.5, RDW 12.8, RDW Differential 42.2, Plt Count 201, MPV 10.7, Immature Gran % (Auto) 0.200, Neut % (Auto) 54.8, Lymph % (Auto) 35.8, [place] % (Auto) 6.9, Eos % (Auto) 1.8, Baso % (Auto) 0.5, Absolute Neuts (auto) 5.2, Total Counted Not Reportable 05/15/18 21:10: Sodium 136, Potassium 3.7, Chloride 102, Carbon Dioxide 26.0, Anion Gap 8, BUN 10, Creatinine 1.00, Est GFR (MDRD) Af Amer 72, Est GFR (MDRD) Non-Af 59 L, BUN/Creatinine Ratio 10.1, Glucose 378 H, Calcium 9.1, Troponin I < 0.015 05/16/18 01:25: Troponin I < 0.015 05/16/18 03:50: Troponin I < 0.015 05/16/18 06:05: WBC 8.9, RBC 5.15, Hgb 15.0, Hct 46.4, MCV 90.1, MCH 29.1, MCHC 32.3, RDW 13.0, RDW Differential 42.2, Plt Count 210, MPV 10.8 05/16/18 06:05: PT 12.5, INR 0.9, APTT 27.3 05/16/18 06:05: Sodium 140, Potassium 3.9, Chloride 105, Carbon Dioxide 27.0, Anion Gap 8, BUN 11, Creatinine 0.86, Est GFR (MDRD) Af Amer 85, Est GFR (MDRD) Non-Af 70, BUN/Creatinine Ratio 12.7, Glucose 191 H, Calcium 9.0 05/16/18 07:17: Troponin I < 0.015, Triglycerides 282 H, Cholesterol 200, LDL Cholesterol 105, VLDL Cholesterol 56 H, HDL Cholesterol 39 L 05/16/18 13:05: D-Dimer Quant (PE/DVT) 0.38 Rhythm: EKG: Normal sinus rhythm with no acute changes ECHO: Stress Test: Normal myocardial perfusion stress test Assessment/Plan 1. Chest pain * Patient presents with chest discomfort which is somewhat atypical. She however is complaints that she was told that she had some coronary artery disease * I did suggest to her that her stress test was reassuring. She however would want us to investigate the above and my recommendation is for us to perform a left heart catheterization. The risks benefits and alternatives have been explained to her she understands and agrees to proceed. * We will perform the above in a.m. and depending on the findings further recommendations will be made. * 2. Hyperlipidemia * Patient has borderline lipids and we will plan on aggressive risk factor modification. * * Thank you for allowing me to participate in the care of your patient. Please don't hesitate to call if any issues arise
[2018-05-16] MEDS: Clopidogrel Bisulfate 300 MG Tablet PO (17:51)
[2018-05-16] MEDS: Enoxaparin 40 MG/0.4 ML Syringe SC (17:52)
[2018-05-16] MEDS: Ondansetron 4 MG/2 ML Vial IV (18:00)
[2018-05-16 18:16] LABS: Bedside Glucose 247 mg/dL (70-110)
--- NOTE | 2018-05-16 21:13 | EKG12_ITS ---
Test Reason : CP ADMIT Blood Pressure : / mmHG Vent. Rate : 082 BPM Atrial Rate : 082 BPM P-R Int : 148 ms QRS Dur : 088 ms QT Int : 390 ms P-R-T Axes : 033 011 046 degrees QTc Int : 455 ms Normal sinus rhythm Possible Inferior infarct , age undetermined Abnormal ECG When compared with ECG of 20-FEB-2018 21:10, T wave inversion now evident in Anterior leads Confirmed by RANDI MONTIEL, IMELDA ([id number]), scientific editor KEVIN ALONSO ([id number] on 05/19/2018 9:26:04 AM Referred By: Solo Morfin Confirmed By:IMELDA BRYAN MD
[2018-05-16] MEDS: Atorvastatin Calcium 40 MG Tablet PO (21:22)
[2018-05-16] MEDS: oxyCODONE 5 MG Tablet PO (21:53)
[2018-05-16 22:31] LABS: Bedside Glucose 185 mg/dL (70-110)
[2018-05-17] VITALS (16 sets, daily range): BP systolic 103–133; BP diastolic 44–94; PULSE 73–82; RESP 14–18; TEMP 36.6–36.8; O2SAT 92–100
[2018-05-17 03:02] LABS: Color, Urine Yellow (Yellow); Glucose, Dipstick Normal (Normal); Ketone-Dipstick Negative (Negative); Leukocyte Esterase-Dipstick Negative /ul (Negative); Nitrite-Dipstick Negative (Negative); Occult Blood-Urine Negative /ul (Negative); Protein-Dipstick Negative (Negative); Urine Bilirubin Dipstick Negative (Negative); Urine Clarity Sl. Cloudy (Clear); Urine Urobilinogen Normal (Normal)
--- NOTE | 2018-05-17 03:35 | EKG12_ITS ---
Test Reason : CP Blood Pressure : / mmHG Vent. Rate : 077 BPM Atrial Rate : 077 BPM P-R Int : 158 ms QRS Dur : 090 ms QT Int : 410 ms P-R-T Axes : 055 047 057 degrees QTc Int : 463 ms Normal sinus rhythm Normal ECG When compared with ECG of 16-MAY-2018 21:37, MANUAL COMPARISON REQUIRED, DATA IS UNCONFIRMED Confirmed by RANDI MONTIEL, IMELDA ([id number]), copy editor KEVIN ALONSO ([id number]) on 05/19/2018 9:21:06 AM Referred By: Solo Morfin Confirmed By:IMELDA BRYAN MD
[2018-05-17] MEDS: Morphine 2 MG/ML Syringe IV (03:37)
[2018-05-17] MEDS: 0.9% NaCl Peripheral Flush Adult/Peds IV (03:37)
[2018-05-17] MEDS: Clopidogrel Bisulfate 75 MG Tablet PO (05:17)
[2018-05-17] MEDS: Aspirin E.C. 81 MG Tablet PO (05:17)
[2018-05-17] MEDS: Metoprolol Tartrate 50 MG Tablet PO (05:17)
[2018-05-17] MEDS: oxyCODONE 5 MG Tablet PO (05:18)
[2018-05-17 05:20] LABS: Absolute Lymphocyte Count 3.13 X10^3/ul (0.83-4.51); Basophil# 0.03 X10^3/uL; Basophil% 0.4 % (0-1); Eosinophil# 0.18 X10^3/uL; Eosinophils% 2.6 % (0-5); Hematocrit 45.4 % (37-47); Lymphocyte # 3.13 X10^3/ul (4.0); Lymphocyte % 45.6 % (19-41); Mean Corpuscular Hgb 29.9 pg (27.0-32.0); Mean Corpuscular Volume 90.6 fL (81-99); Mean Platelet Vol. 10.6 fl (6.2-12.0); Monocyte# 0.56 X10^3/uL; Monocyte% 8.2 % (0-10); Neutrophil # 2.95 X10^3/uL (2.7-7.7); Neutrophil % 43.1 % (47-70); Platelet Count 205 K/mm3 (150-450); RBC Distribution Width CV 12.9 % (11.6-14.6); RBC Distribution Width SD 42.7 fl (35.1-43.9); Red Blood Count 5.01 M/mm3 (4.2-5.4); White Blood Count 6.9 K/mm3 (4.4-11.0)
[2018-05-17 05:22] LABS: POSITIVE COUNT NO; POSITIVE DIFFERENTIAL NO; POSITIVE MORPHOLOGY NO
[2018-05-17 05:26] LABS: Prothrombin Time (Protime)PT. 12.9 SECONDS (11.7-14.9)
[2018-05-17 05:27] LABS: Partial Thromboplast Time 28.5 Seconds (24.1-36.2)
[2018-05-17 05:36] LABS: Anion Gap 8 (5-15); BUN 11 mg/dL (7-18); BUN/Creat Ratio 12.7 RATIO (10-20); Chloride 105 mmol/L (98-107); Creatinine, Serum 0.87 mg/dL (0.55-1.02); EST Glomerular Filtration Rate 70 mL/min (>60); Est Glom Filt Rate - Afr Amer 84 mL/min (>60); Glucose 169 mg/dL (74-106); Potassium 4.2 mmol/L (3.5-5.1); Sodium Level 142 mmol/L (136-145)
[2018-05-17 06:56] LABS: Bedside Glucose 153 mg/dL (70-110)
--- NOTE | 2018-05-17 06:58 | NURSING ---
Called report to label stamper
--- NOTE | 2018-05-17 07:57 | PN.CARD_ITS ---
Subjectve: Patient seen and evaluated. Underwent heart cath this morning Objective: Vital Signs Temp Pulse Resp BP Pulse Ox 98 F 73 16 123/90 H 93 05/17/18 05:15 05/17/18 06:35 05/17/18 05:15 05/17/18 05:17 05/17/18 05:15 Oxygen Delivery Method Room Air Weight: 251 lb 5.231 oz Body Mass Index (BMI) 34.0 Finger Stick Blood Glucose 464 Intake and Output for Last 24 Hours 05/15/18 05/16/18 05/17/18 23:59 23:59 23:59 Intake Total 490 / 490 Balance 490 / 490 General: Awake, Alert, Oriented x 3 HEENT: PERRL, EOMI, Sclera Non Icteric Neck: Supple, Good ROM, No Lymph Node Enlargement Lungs: Clear to auscultation Cardiovascular: Regular Rhythm, Normal S1, Normal S2, No Murmurs, No Rubs, No Gallops Vascular: No Carotid Bruits, Normal Femoral Pulses, Normal Radial Pulses, Normal Dorsalis Pedal Pulse, Normal Posterior Tibial Pulses Abdomen: Bowel Sounds Present, Soft, Non Tender, No HSM, No Organomegaly Extremities: No Cyanosis, No Clubbing, No edema Neurological: No Focal Motor or Sensory Deficit Psych/Mental Status: Appropriate 05/16/18 07:17: Troponin I < 0.015, Triglycerides 282 H, Cholesterol 200, LDL Cholesterol 105, VLDL Cholesterol 56 H, HDL Cholesterol 39 L 05/16/18 13:05: D-Dimer Quant (PE/DVT) 0.38 05/17/18 02:50: Urine Color Yellow, Urine Clarity Sl. Cloudy, Urine pH 5.0, Ur Specific [place] 1.020, Urine Protein Negative, Urine Glucose (UA) Normal, Urine Ketones Negative, Urine Occult Blood Negative, Urine Nitrite Negative, Urine Bilirubin Negative, Urine Urobilinogen Normal, Ur Leukocyte Esterase Negative 05/17/18 05:05: WBC 6.9, RBC 5.01, Hgb 15.0, Hct 45.4, MCV 90.6, MCH 29.9, MCHC 33.0, RDW 12.9, RDW Differential 42.7, Plt Count 205, MPV 10.6, Immature Gran % (Auto) 0.100, Neut % (Auto) 43.1 L, Lymph % (Auto) 45.6 H, [place] % (Auto) 8.2, Eos % (Auto) 2.6, Baso % (Auto) 0.4, Absolute Neuts (auto) 3.0, Total Counted Not Reportable 05/17/18 05:05: PT 12.9, INR 1.0, APTT 28.5 05/17/18 05:05: Sodium 142, Potassium 4.2, Chloride 105, Carbon Dioxide 29.0, Anion Gap 8, BUN 11, Creatinine 0.87, Est GFR (MDRD) Af Amer 84, Est GFR (MDRD) Non-Af 70, BUN/Creatinine Ratio 12.7, Glucose 169 H, Calcium 9.0 Rhythm: EKG: ECHO: Stress Test: Cardiac Cath: PCI: CT Surgery: Holter monitor: EPS: PPM: CXR: Chest CT Scan: Medical Necessity - Tobacco Use Smoking Status: Current every day smoker Tobacco Use: Cigarettes Assessment/Plan 1. Chest pain * Patient presents with chest discomfort which is somewhat atypical. She however is complaints that she was told that she had some coronary artery disease * Cardiac catheterization today demonstrated the following: Normal left main coronary artery. Left anterior descending artery with mild disease. First diagonal vessel with moderate diffuse disease. Left circumflex artery with mild disease. First obtuse marginal branch with moderate diffuse disease. Calcified dominant right coronary artery with diffuse 60% mid segment stenosis Preserved left ventricular systolic function. Based on the above angiographic findings I would recommend aggressive risk factor modification and medical therapy. If she fails we will consider angioplasty and Rotablator to the right coronary artery. Besides her stress test at this particular time it was normal and her symptoms sound rather atypical. 2. Hyperlipidemia * Patient has borderline lipids and we will plan on aggressive risk factor modification. * * 3. Hypertension * Blood pressure appears to be under suboptimal control * Would add ramipril to her current medication * Thank you for allowing me to participate in the care of your patient. Please don't hesitate to call if any issues arise
--- NOTE | 2018-05-17 08:05 | CL.D_ITS ---
Patient Name: RON ALONSO Study Date: 05/17/2018 Performing: Vidal Soler MD Ht: 72 inches 183 cm : 1950 Wt: 251.7 lbs 114 kg Age: 67 Gender: female BSA: 2.35 PROCEDURE(S) PERFORMED [id number] CLINICAL PROFILE AND INDICATIONS Indications: Suspected CAD Heart Failure: None Stress/Imaging Stress Test w/SPECT MPI: Yes Result: NegativeStress Test with SPECT MPI: Negative CAD Presentations: Symptom unlikely to be ischemic. CONCLUSIONS Diffuse disease involving the first diagonal branch, first obtuse marginal branch, moderately severel y calcified right coronary artery with moderate mid segment disease RECOMMENDATIONS Medical therapy DESCRIPTION OF PROCEDURE The patient arrived to the procedure lab. The risks and benefits of the procedure as well as a full d escription of our services here and current unavailability of surgical backup were fully explained to the patient and/or their significant other prior to the catheterization. The Timeout was completed, verifying the correct patient and procedure. The patient's procedural site was prepped and draped in the usual fashion. Local anesthetic was given subcutaneously to right groin region with Lidocaine 2%. Using a modified Seldinger technique, arterial access was obtained via the right femoral artery, a 5 Fr sheath was inserted. Left Coronary Artery selective angiography was performed in multiple views u sing a 5 Fr. JL4 catheter. Right Coronary Artery selective angiography was then performed in multiple views using a 5 Fr. 3DRC (Marquez) catheter. Left Ventriculography was performed in [place] projection using a 5 Fr. Pigtail catheter. LV to AO pullback pressures were then recorded.The arterial sheath was pulled and a Mynx closure device was deployed for hemostasis CORONARY ANGIOGRAPHY DOMINANCE: Right Dominant LEFT HEART ASSESSMENT Left Ventricular Ejection Fraction: by LV Gram 60 % Normal Left Ventricular systolic function LEFT MAIN: Angiographically normal, Mild calcification LEFT ANTERIOR DECENDING ARTERY: Mild luminal irregularities less than 30% DIAGONAL 1: Proximal - Moderate luminal irregularities up to 50% CIRCUMFLEX ARTERY: Mild luminal irregularities less than 30% OM 1: Proximal - Moderate luminal irregularities up to 50% RIGHT CORONARY ARTERY: Diffuse distal disease MID RCA: Moderate calcification, Diffusely diseased up to 60 % COMPLICATIONS No Complications PROCEDURE MEDICATIONS Versed 1 mg IV Versed 1 mg IV Oxygen: 2 L/min via nasal cannula SUMMARY OF HEMODYNAMIC DATA Time AIR REST ECG 07:18:27 AO 142/69 (97) SA 07:35:06 LV 157/6, 9 07:41:22 LV 154/6, 9 07:41:28 LV 169/-6, 16 07:42:08 LVp 173/-13, 17 07:42:14 AOp 171/67 (108) 07:42:19 Signed By Vidal Soler MD On 05/17/2018 08:04:41 Vidal Soler MD
[2018-05-17] MEDS: Insulin Lispro 100 UNIT/ML INSULN.PEN SQ ×2 (08:38→12:19)
[2018-05-17] MEDS: Gabapentin 300 MG Capsule PO ×2 (09:12→12:20)
[2018-05-17] MEDS: Isosorbide Mononitrate 30 MG Tablet PO (09:13)
[2018-05-17] MEDS: Ramipril 5 MG Capsule PO (09:13)
--- NOTE | 2018-05-17 10:59 | DCINST_ITS ---
- Discharge Diagnoses Current Active Problems: Current Active and Chronic Problems (Last Updated 05/16/18 @ 02:39 by Solo Morfin MD) Chest pain (Acute) Diabetes (Chronic) You will use the following diet at home:: Calorie/Carbohydrate Controlled (specify 1200, 1400, etc) - 1800 calories per day, Cardiac - <2 grams sodium daily Your food should be the consistency of: Regular Your liquids should be the consistency of: Regular/Thin Discharge Activity: - - No smoking. Instructions: Tips for Quitting Smoking (Cardiovascular) Allergies/Adverse Reactions: Allergies No Known Allergies Allergy (Verified 05/15/18 20:56) Medications to take at Discharge Gabapentin [Neurontin] 1,200 mg PO TID 06/06/14 Aspirin E.C. [Ecotrin] 81 mg PO DAILY 02/04/15 Atorvastatin Calcium [Lipitor] 40 mg PO QHS #30 tablet 10/31/16 Oxycodone HCl/Acetaminophen [Percocet 5-325] 1 - 2 tablet PO Q6H PRN PRN #20 tablet 10/31/16 Baclofen [Lioresal] 5 mg PO TID PRN 02/20/18 Amitriptyline HCl 25 mg PO QHS 05/16/18 Aspirin E.C. [Ecotrin] 81 mg PO DAILY@0800 tablet 05/16/18 Insulin Glargine [Lantus SoloStar Pen] 38 units SC DAILY@1900 pen 05/16/18 Metoprolol Tartrate [Lopressor (beta lennie)] 50 mg PO BID 05/16/18 Isosorbide Mononitrate [Imdur] 30 mg PO DAILY #30 tab 05/17/18 Ramipril [Altace] 5 mg PO DAILY #30 cap 05/17/18 The following prescriptions were given: Isosorbide Mononitrate [Imdur] 30 mg PO DAILY #30 tab Ramipril [Altace] 5 mg PO DAILY #30 cap Primary Care Physician: Young Eric III, MD [Primary Care Provider] - Please follow up with your Primary Care Physician in: 1-2 weeks Test Results: Test results from this visit will be discussed in further detail at your follow- up appointment, if applicable. Please Follow Up With: Vidal Soler MD When: As directed Proposed Discharge Date: 05/16/18
[2018-05-17 12:56] LABS: Bedside Glucose 196 mg/dL (70-110)
--- NOTE | 2018-05-17 16:36 | PCM.DC.SUM ---
<Pro Heller - Last Filed: 05/17/18 16:36> Discharge Date and Diagnosis Date of Admission: 05/15/18 Date of Discharge: 05/17/18 - Primary Discharge Diagnosis Chest pain-muscular skeletal History of CAD, prior [place] History of CVA Long-term nicotine abuse Type 2 diabetes with obesity Chronic pain - Secondary Discharge Diagnosis Chronic Problems (Last Updated 05/16/18 @ 02:39 by Solo Morfin MD) Diabetes (Chronic) Hospital Course and Treatment Imaging Results: Heart Cath: CONCLUSIONS Diffuse disease involving the first diagonal branch, first obtuse marginal branch, moderately severely calcified right coronary artery with moderate mid segment disease RECOMMENDATIONS Medical therapy RAD/Chest 1 View (Portable) IMPRESSION: No acute cardiopulmonary disease or interval change. Stress Test: Conclusion: Normal pharmacologic myocardial perfusion stress test. Preserved ejection fraction. Consults: Ryder - cardiology Operations: None Procedures: Cardiac catheterization, Stress test Summary of Care Provided: Hospital Course: The patient is a 67 year old F with past medical history of CAD with an KS in 2006 for which she received TPA, no stents, no CABG, history of type 2 diabetes, obesity, ongoing nicotine abuse her entire life, who presents to the emergency room with complaints of chest pain. She was found to have a negative chest x-ray, negative troponin, negative EKG. She was admitted to the PCU and placed on telemetry. No events on telemetry overnight. The following day she underwent a stress test with no findings of ischemia. Trop neg x3, d dimer neg. She continued to have severe ongoing chest pain so cardiology was consulted. She was taken for heart catheterization and mild coronary disease was found for which medical therapy was advised. She was started on Imdur and ramipril. Patient is advised that she will need to have outpatient follow-up with cardiology as directed and will also need to follow-up with her PCP in 1-2 weeks. She was discharged home in stable condition. This patient was seen by Pro Heller PA-C under the supervision of Doctor Kearney. [] - Physical Exam General: Alert, Oriented x3, Cooperative HEENT: Atraumatic, PERRLA, EOMI, Normocephalic Neck: Supple, No JVD, Negative Carotid Bruits Lungs: Clear to auscultation, Normal air movement Cardiovascular: Regular rate, No murmurs Abdomen: Bowel Sounds Present, Soft, Non Tender, Obese Extremities: No edema, Capillary Refill Less than 3 Seconds Skin: No rashes, No breakdown Musculoskeletal: No Tenderness to Palpation of Joints or Extremities Neurological: Cranial nerves II-XII grossly intact Psych/Mental Status: Normal Affect, Appropriate Vital Signs Temp Pulse Resp BP Pulse Ox 98.1 F 82 16 103/44 L 97 05/17/18 11:05 05/17/18 12:32 05/17/18 12:32 05/17/18 12:32 05/17/18 12:32 Oxygen Flow Rate (L/min) 2 Oxygen Delivery Method Room Air Weight: 251 lb 5.231 oz Body Mass Index (BMI) 34.0 Finger Stick Blood Glucose 464 Intake and Output for Last 24 Hours 05/15/18 05/16/18 05/17/18 23:59 23:59 23:59 Intake Total 490 / 490 Balance 490 / 490 Laboratory Tests Past 24 Hrs 05/17/18 05/17/18 05/17/18 02:50 05:05 05:05 WBC 6.9 RBC 5.01 Hgb 15.0 Hct 45.4 MCV 90.6 MCH 29.9 MCHC 33.0 RDW 12.9 RDW Differential 42.7 Plt Count 205 MPV 10.6 Immature Gran % (Auto) 0.100 Neut % (Auto) 43.1 L Lymph % (Auto) 45.6 H [place] % (Auto) 8.2 Eos % (Auto) 2.6 Baso % (Auto) 0.4 Absolute Neuts (auto) 3.0 Absolute Lymphs (auto) 3.13 Total Counted Not Reportable PT 12.9 INR 1.0 APTT 28.5 Sodium Potassium Chloride Carbon Dioxide Anion Gap BUN Creatinine Estim Creat Clear Calc Est GFR (MDRD) Af Amer Est GFR (MDRD) Non-Af BUN/Creatinine Ratio Glucose Calcium Urine Color Yellow Urine Clarity Sl. Cloudy Urine pH 5.0 Ur Specific [place] 1.020 Urine Protein Negative Urine Glucose (UA) Normal Urine Ketones Negative Urine Occult Blood Negative Urine Nitrite Negative Urine Bilirubin Negative Urine Urobilinogen Normal Ur Leukocyte Esterase Negative 05/17/18 05:05 WBC RBC Hgb Hct MCV MCH MCHC RDW RDW Differential Plt Count MPV Immature Gran % (Auto) Neut % (Auto) Lymph % (Auto) [place] % (Auto) Eos % (Auto) Baso % (Auto) Absolute Neuts (auto) Absolute Lymphs (auto) Total Counted PT INR APTT Sodium 142 Potassium 4.2 Chloride 105 Carbon Dioxide 29.0 Anion Gap 8 BUN 11 Creatinine 0.87 Estim Creat Clear Calc 74.40 Est GFR (MDRD) Af Amer 84 Est GFR (MDRD) Non-Af 70 BUN/Creatinine Ratio 12.7 Glucose 169 H Calcium 9.0 Urine Color Urine Clarity Urine pH Ur Specific [place] Urine Protein Urine Glucose (UA) Urine Ketones Urine Occult Blood Urine Nitrite Urine Bilirubin Urine Urobilinogen Ur Leukocyte Esterase POC Glucose 05/17/18 05/17/18 05/16/18 12:18 06:45 21:20 POC Glucose 196 H 153 H 185 H 05/16/18 17:54 POC Glucose 247 H Discharge Diet: Low fat/ Low Cholesterol, 1800 Calorie Control Diet, 2000 mg Sodium Diet Discharge Activity: - - No smoking. Home Medications: Medications to take at Discharge Gabapentin [Neurontin] 1,200 mg PO TID 06/06/14 Aspirin E.C. [Ecotrin] 81 mg PO DAILY 02/04/15 Atorvastatin Calcium [Lipitor] 40 mg PO QHS #30 tablet 10/31/16 Oxycodone HCl/Acetaminophen [Percocet 5-325] 1 - 2 tablet PO Q6H PRN PRN #20 tablet 10/31/16 Baclofen [Lioresal] 5 mg PO TID PRN 02/20/18 Amitriptyline HCl 25 mg PO QHS 05/16/18 Aspirin E.C. [Ecotrin] 81 mg PO DAILY@0800 tablet 05/16/18 Insulin Glargine [Lantus SoloStar Pen] 38 units SC DAILY@1900 pen 05/16/18 Metoprolol Tartrate [Lopressor (beta lennie)] 50 mg PO BID 05/16/18 Isosorbide Mononitrate [Imdur] 30 mg PO DAILY #30 tab 05/17/18 Ramipril [Altace] 5 mg PO DAILY #30 cap 05/17/18 Following Prescrptions Were Given to Patient: Isosorbide Mononitrate [Imdur] 30 mg PO DAILY #30 tab Ramipril [Altace] 5 mg PO DAILY #30 cap Primary Care Physician: Young Eric III, MD [Primary Care Provider] - Please follow up with your Primary Care Physician in: 1-2 weeks Please Follow Up With: Vidal Soler MD When: As directed Patient Instructions: Tips for Quitting Smoking (Cardiovascular) Disposition: Home Minutes spent on discharge:: 35 Patient Condition:: Stable Medical Necessity - Tobacco Use Smoking Status: Current every day smoker Tobacco Use: Cigarettes Meaningful Use Info Meaningful Use Diagnoses (Choose all that apply): None applicable <Sav Kearney - Last Filed: 05/17/18 17:12> Discharge Date and Diagnosis - Secondary Discharge Diagnosis Chronic Problems (Last Updated 05/16/18 @ 02:39 by Solo Morfin MD) Diabetes (Chronic) Hospital Course and Treatment Summary of Care Provided: This patient was seen in conjunction with Pro Heller PA-C . I have independently interviewed and examined the patient and reviewed pertinent historical, laboratory, and other data. Please refer to Pro Heller PA-C note for details of this patient's presentation, findings, and recommendations. I have reviewed Pro Heller PA-C note and concur with documented findings. In brief, patient is a 67-year-old lady with past medical history significant for CAD presented with chest pain. Assessment: 1. Chest pain; negative stress test underwent left heart catheterization with findings of diffuse disease optimization of medical therapy advised 2. CAD with previous KS no intervention 3. Diabetes mellitus type 2 4. Tobacco dependence 5. History of CVA with no residual effect 6. Obesity with BMI of 34.1 Hospital course: As documented above - Physical Exam Vital Signs Temp Pulse Resp BP Pulse Ox 98.1 F 82 16 103/44 L 97 05/17/18 11:05 05/17/18 12:32 05/17/18 12:32 05/17/18 12:32 05/17/18 12:32 Oxygen Flow Rate (L/min) 2 Oxygen Delivery Method Room Air Weight: 114 kg Body Mass Index (BMI) 34.0 Finger Stick Blood Glucose 464 Intake and Output for Last 24 Hours 05/15/18 05/16/18 05/17/18 23:59 23:59 23:59 Intake Total 490 / 490 Balance 490 / 490 Laboratory Tests Past 24 Hrs 05/17/18 05/17/18 05/17/18 02:50 05:05 05:05 WBC 6.9 RBC 5.01 Hgb 15.0 Hct 45.4 MCV 90.6 MCH 29.9 MCHC 33.0 RDW 12.9 RDW Differential 42.7 Plt Count 205 MPV 10.6 Immature Gran % (Auto) 0.100 Neut % (Auto) 43.1 L Lymph % (Auto) 45.6 H [place] % (Auto) 8.2 Eos % (Auto) 2.6 Baso % (Auto) 0.4 Absolute Neuts (auto) 3.0 Absolute Lymphs (auto) 3.13 Total Counted Not Reportable PT 12.9 INR 1.0 APTT 28.5 Sodium Potassium Chloride Carbon Dioxide Anion Gap BUN Creatinine Estim Creat Clear Calc Est GFR (MDRD) Af Amer Est GFR (MDRD) Non-Af BUN/Creatinine Ratio Glucose Calcium Urine Color Yellow Urine Clarity Sl. Cloudy Urine pH 5.0 Ur Specific [place] 1.020 Urine Protein Negative Urine Glucose (UA) Normal Urine Ketones Negative Urine Occult Blood Negative Urine Nitrite Negative Urine Bilirubin Negative Urine Urobilinogen Normal Ur Leukocyte Esterase Negative 05/17/18 05:05 WBC RBC Hgb Hct MCV MCH MCHC RDW RDW Differential Plt Count MPV Immature Gran % (Auto) Neut % (Auto) Lymph % (Auto) [place] % (Auto) Eos % (Auto) Baso % (Auto) Absolute Neuts (auto) Absolute Lymphs (auto) Total Counted PT INR APTT Sodium 142 Potassium 4.2 Chloride 105 Carbon Dioxide 29.0 Anion Gap 8 BUN 11 Creatinine 0.87 Estim Creat Clear Calc 74.40 Est GFR (MDRD) Af Amer 84 Est GFR (MDRD) Non-Af 70 BUN/Creatinine Ratio 12.7 Glucose 169 H Calcium 9.0 Urine Color Urine Clarity Urine pH Ur Specific [place] Urine Protein Urine Glucose (UA) Urine Ketones Urine Occult Blood Urine Nitrite Urine Bilirubin Urine Urobilinogen Ur Leukocyte Esterase POC Glucose 05/17/18 05/17/18 05/16/18 12:18 06:45 21:20 POC Glucose 196 H 153 H 185 H 05/16/18 17:54 POC Glucose 247 H Code Visit OBSV E&M: [id number] Observation care discharge
--- NOTE | 2018-05-17 16:40 | DS.PCM_ITS ---
<Pro Heller - Last Filed: 05/17/18 16:36> Discharge Date and Diagnosis Date of Admission: 05/15/18 Date of Discharge: 05/17/18 - Primary Discharge Diagnosis Chest pain-muscular skeletal History of CAD, prior [place] History of CVA Long-term nicotine abuse Type 2 diabetes with obesity Chronic pain - Secondary Discharge Diagnosis Chronic Problems (Last Updated 05/16/18 @ 02:39 by Solo Morfin MD) Diabetes (Chronic) Hospital Course and Treatment Imaging Results: Heart Cath: CONCLUSIONS Diffuse disease involving the first diagonal branch, first obtuse marginal branch, moderately severely calcified right coronary artery with moderate mid segment disease RECOMMENDATIONS Medical therapy RAD/Chest 1 View (Portable) IMPRESSION: No acute cardiopulmonary disease or interval change. Stress Test: Conclusion: Normal pharmacologic myocardial perfusion stress test. Preserved ejection fraction. Consults: Ryder - cardiology Operations: None Procedures: Cardiac catheterization, Stress test Summary of Care Provided: Hospital Course: The patient is a 67 year old F with past medical history of CAD with an NM in 2006 for which she received TPA, no stents, no CABG, history of type 2 diabetes, obesity, ongoing nicotine abuse her entire life, who presents to the emergency room with complaints of chest pain. She was found to have a negative chest x- ray, negative troponin, negative EKG. She was admitted to the PCU and placed on telemetry. No events on telemetry overnight. The following day she underwent a stress test with no findings of ischemia. Trop neg x3, d dimer neg. She continued to have severe ongoing chest pain so cardiology was consulted. She was taken for heart catheterization and mild coronary disease was found for which medical therapy was advised. She was started on Imdur and ramipril. Patient is advised that she will need to have outpatient follow-up with cardiology as directed and will also need to follow-up with her PCP in 1-2 weeks. She was discharged home in stable condition. This patient was seen by Pro Heller PA-C under the supervision of Doctor Kearney. [] - Physical Exam General: Alert, Oriented x3, Cooperative HEENT: Atraumatic, PERRLA, EOMI, Normocephalic Neck: Supple, No JVD, Negative Carotid Bruits Lungs: Clear to auscultation, Normal air movement Cardiovascular: Regular rate, No murmurs Abdomen: Bowel Sounds Present, Soft, Non Tender, Obese Extremities: No edema, Capillary Refill Less than 3 Seconds Skin: No rashes, No breakdown Musculoskeletal: No Tenderness to Palpation of Joints or Extremities Neurological: Cranial nerves II-XII grossly intact Psych/Mental Status: Normal Affect, Appropriate Vital Signs Temp Pulse Resp BP Pulse Ox 98.1 F 82 16 103/44 L 97 05/17/18 11:05 05/17/18 12:32 05/17/18 12:32 05/17/18 12:32 05/17/18 12:32 Oxygen Flow Rate (L/min) 2 Oxygen Delivery Method Room Air Weight: 251 lb 5.231 oz Body Mass Index (BMI) 34.0 Finger Stick Blood Glucose 464 Intake and Output for Last 24 Hours 05/15/18 05/16/18 05/17/18 23:59 23:59 23:59 Intake Total 490 / 490 Balance 490 / 490 Laboratory Tests Past 24 Hrs 05/17/18 05/17/18 05/17/18 02:50 05:05 05:05 WBC 6.9 RBC 5.01 Hgb 15.0 Hct 45.4 MCV 90.6 MCH 29.9 MCHC 33.0 RDW 12.9 RDW Differential 42.7 Plt Count 205 MPV 10.6 Immature Gran % (Auto) 0.100 Neut % (Auto) 43.1 L Lymph % (Auto) 45.6 H [place] % (Auto) 8.2 Eos % (Auto) 2.6 Baso % (Auto) 0.4 Absolute Neuts (auto) 3.0 Absolute Lymphs (auto) 3.13 Total Counted Not Reportable PT 12.9 INR 1.0 APTT 28.5 Sodium Potassium Chloride Carbon Dioxide Anion Gap BUN Creatinine Estim Creat Clear Calc Est GFR (MDRD) Af Amer Est GFR (MDRD) Non-Af BUN/Creatinine Ratio Glucose Calcium Urine Color Yellow Urine Clarity Sl. Cloudy Urine pH 5.0 Ur Specific [place] 1.020 Urine Protein Negative Urine Glucose (UA) Normal Urine Ketones Negative Urine Occult Blood Negative Urine Nitrite Negative Urine Bilirubin Negative Urine Urobilinogen Normal Ur Leukocyte Esterase Negative 05/17/18 05:05 WBC RBC Hgb Hct MCV MCH MCHC RDW RDW Differential Plt Count MPV Immature Gran % (Auto) Neut % (Auto) Lymph % (Auto) [place] % (Auto) Eos % (Auto) Baso % (Auto) Absolute Neuts (auto) Absolute Lymphs (auto) Total Counted PT INR APTT Sodium 142 Potassium 4.2 Chloride 105 Carbon Dioxide 29.0 Anion Gap 8 BUN 11 Creatinine 0.87 Estim Creat Clear Calc 74.40 Est GFR (MDRD) Af Amer 84 Est GFR (MDRD) Non-Af 70 BUN/Creatinine Ratio 12.7 Glucose 169 H Calcium 9.0 Urine Color Urine Clarity Urine pH Ur Specific [place] Urine Protein Urine Glucose (UA) Urine Ketones Urine Occult Blood Urine Nitrite Urine Bilirubin Urine Urobilinogen Ur Leukocyte Esterase POC Glucose 05/17/18 05/17/18 05/16/18 12:18 06:45 21:20 POC Glucose 196 H 153 H 185 H 05/16/18 17:54 POC Glucose 247 H Discharge Diet: Low fat/ Low Cholesterol, 1800 Calorie Control Diet, 2000 mg Sodium Diet Discharge Activity: - - No smoking. Home Medications: Medications to take at Discharge Gabapentin [Neurontin] 1,200 mg PO TID 06/06/14 Aspirin E.C. [Ecotrin] 81 mg PO DAILY 02/04/15 Atorvastatin Calcium [Lipitor] 40 mg PO QHS #30 tablet 10/31/16 Oxycodone HCl/Acetaminophen [Percocet 5-325] 1 - 2 tablet PO Q6H PRN PRN #20 tablet 10/31/16 Baclofen [Lioresal] 5 mg PO TID PRN 02/20/18 Amitriptyline HCl 25 mg PO QHS 05/16/18 Aspirin E.C. [Ecotrin] 81 mg PO DAILY@0800 tablet 05/16/18 Insulin Glargine [Lantus SoloStar Pen] 38 units SC DAILY@1900 pen 05/16/18 Metoprolol Tartrate [Lopressor (beta lennie)] 50 mg PO BID 05/16/18 Isosorbide Mononitrate [Imdur] 30 mg PO DAILY #30 tab 05/17/18 Ramipril [Altace] 5 mg PO DAILY #30 cap 05/17/18 Following Prescrptions Were Given to Patient: Isosorbide Mononitrate [Imdur] 30 mg PO DAILY #30 tab Ramipril [Altace] 5 mg PO DAILY #30 cap Primary Care Physician: Young Eric III, MD [Primary Care Provider] - Please follow up with your Primary Care Physician in: 1-2 weeks Please Follow Up With: Vidal Soler MD When: As directed Patient Instructions: Tips for Quitting Smoking (Cardiovascular) Disposition: Home Minutes spent on discharge:: 35 Patient Condition:: Stable Medical Necessity - Tobacco Use Smoking Status: Current every day smoker Tobacco Use: Cigarettes Meaningful Use Info Meaningful Use Diagnoses (Choose all that apply): None applicable <Sav Kearney - Last Filed: 05/17/18 17:12> Discharge Date and Diagnosis - Secondary Discharge Diagnosis Chronic Problems (Last Updated 05/16/18 @ 02:39 by Solo Morfin MD) Diabetes (Chronic) Hospital Course and Treatment Summary of Care Provided: This patient was seen in conjunction with Pro Heller PA-C . I have independen tly interviewed and examined the patient and reviewed pertinent historical, laboratory, and other data. Please refer to Pro Heller PA-C note for details of this patient's presentation, findings, and recommendations. I have reviewed Pro Heller PA-C note and concur with documented findings. In brief, patient is a 67-year-old lady with past medical history significant for CAD presented with chest pain. Assessment: 1. Chest pain; negative stress test underwent left heart catheterization with findings of diffuse disease optimization of medical therapy advised 2. CAD with previous [place] no intervention 3. Diabetes mellitus type 2 4. Tobacco dependence 5. History of CVA with no residual effect 6. Obesity with BMI of 34.1 Hospital course: As documented above - Physical Exam Vital Signs Temp Pulse Resp BP Pulse Ox 98.1 F 82 16 103/44 L 97 05/17/18 11:05 05/17/18 12:32 05/17/18 12:32 05/17/18 12:32 05/17/18 12:32 Oxygen Flow Rate (L/min) 2 Oxygen Delivery Method Room Air Weight: 114 kg Body Mass Index (BMI) 34.0 Finger Stick Blood Glucose 464 Intake and Output for Last 24 Hours 05/15/18 05/16/18 05/17/18 23:59 23:59 23:59 Intake Total 490 / 490 Balance 490 / 490 Laboratory Tests Past 24 Hrs 05/17/18 05/17/18 05/17/18 02:50 05:05 05:05 WBC 6.9 RBC 5.01 Hgb 15.0 Hct 45.4 MCV 90.6 MCH 29.9 MCHC 33.0 RDW 12.9 RDW Differential 42.7 Plt Count 205 MPV 10.6 Immature Gran % (Auto) 0.100 Neut % (Auto) 43.1 L Lymph % (Auto) 45.6 H [place] % (Auto) 8.2 Eos % (Auto) 2.6 Baso % (Auto) 0.4 Absolute Neuts (auto) 3.0 Absolute Lymphs (auto) 3.13 Total Counted Not Reportable PT 12.9 INR 1.0 APTT 28.5 Sodium Potassium Chloride Carbon Dioxide Anion Gap BUN Creatinine Estim Creat Clear Calc Est GFR (MDRD) Af Amer Est GFR (MDRD) Non-Af BUN/Creatinine Ratio Glucose Calcium Urine Color Yellow Urine Clarity Sl. Cloudy Urine pH 5.0 Ur Specific [place] 1.020 Urine Protein Negative Urine Glucose (UA) Normal Urine Ketones Negative Urine Occult Blood Negative Urine Nitrite Negative Urine Bilirubin Negative Urine Urobilinogen Normal Ur Leukocyte Esterase Negative 05/17/18 05:05 WBC RBC Hgb Hct MCV MCH MCHC RDW RDW Differential Plt Count MPV Immature Gran % (Auto) Neut % (Auto) Lymph % (Auto) [place] % (Auto) Eos % (Auto) Baso % (Auto) Absolute Neuts (auto) Absolute Lymphs (auto) Total Counted PT INR APTT Sodium 142 Potassium 4.2 Chloride 105 Carbon Dioxide 29.0 Anion Gap 8 BUN 11 Creatinine 0.87 Estim Creat Clear Calc 74.40 Est GFR (MDRD) Af Amer 84 Est GFR (MDRD) Non-Af 70 BUN/Creatinine Ratio 12.7 Glucose 169 H Calcium 9.0 Urine Color Urine Clarity Urine pH Ur Specific [place] Urine Protein Urine Glucose (UA) Urine Ketones Urine Occult Blood Urine Nitrite Urine Bilirubin Urine Urobilinogen Ur Leukocyte Esterase POC Glucose 05/17/18 05/17/18 05/16/18 12:18 06:45 21:20 POC Glucose 196 H 153 H 185 H 05/16/18 17:54 POC Glucose 247 H Code Visit OBSV E&M: [id number] Observation care discharge
== END 2018-05-17 12:55 | disposition home or self-care (01) ==
LOC: ED 23:32 → PCU 23:53
PROVIDERS: Internal Medicine Cardiovascular Disease; Physician Assistant; Admitting Provider Hospitalist; Emergency Provider Emergency Medicine; Family Provider Family Medicine; PCP Family Medicine; Referring Provider Hospitalist; Visit Provider Internal Medicine
DX: R07.89 Other chest pain (principal); I25.10 Atherosclerotic heart disease of native coronary artery without angina pectoris; E11.65 Type 2 diabetes mellitus with hyperglycemia; F17.210 Nicotine dependence, cigarettes, uncomplicated; I10 Essential (primary) hypertension; Z86.73 Personal history of transient ischemic attack (TIA), and cerebral infarction without residual deficits; Z79.899 Other long term (current) drug therapy; Z79.82 Long term (current) use of aspirin; Z79.4 Long term (current) use of insulin; G89.4 Chronic pain syndrome; E66.9 Obesity, unspecified; Z68.34 Body mass index [BMI] 34.0-34.9, adult; Z71.3 Dietary counseling and surveillance
CPT/HCPCS: 36415; 71045; 78452; 80048; 80061; 81002; 82962; 84484; 85025; 85027; 85379; 85610; 85730; 93005; 93017; 93458; 96361; 96372; 96374; 96375; 96376; 97802; 99152; 99218; 99285; 99406; A9500; C1760; J7030; Q9967; A4216; C1769; G0378; J2405; J2785

== ENCOUNTER → 2020-10-11 09:09 | Outpatient (CLI) | payer MEDICARE, MEDICAID, SELFPAY ==
[2018-07-21 09:49] VITALS: BMI 34.9
--- NOTE | 2020-10-11 09:14 | US_ITS ---
STUDY: SUPERFICIAL ULTRASOUND - ULTRASOUND OF THE CHEST WALL REASON FOR EXAM: Female, 70 years old. MASS INVOLVING BI SIDES OF CHEST WALL TECHNIQUE: A superficial ultrasound was performed with real-time and static sykes-scale imaging. COMPARISON: None. FINDINGS: No sonographic evidence of a mass or fluid collection is seen in the chest wall on either side. MRI may be obtained if clinical suspicion is high. US/Chest IMPRESSION: No sonographic evidence of a mass in the chest wall on either side. MRI may be obtained if clinical suspicion is high. Electronically Signed: Shane Bruce MD at 21:01 EDT Tel , Service support ,
== END ==
PROVIDERS: PCP Family Medicine; Referring Provider Physician Assistant; Visit Provider Physician Assistant
DX: R22.2 Localized swelling, mass and lump, trunk (principal)
CPT/HCPCS: 76604